=== PATIENT | female | born 1940 | race Caucasian/White ===

== ENCOUNTER 2021-10-03 01:22 | Outpatient (CLI) | payer MEDICARE, BC, SELFPAY | END 2021-10-03 01:23 | disposition home or self-care (01) | LOC: AMB 10-09 21:14 | PROVIDERS: Visit Provider Family Medicine | DX: R53.1 Weakness (principal) ==

== ENCOUNTER 2021-10-05 12:32 | Outpatient (CLI) | payer MEDICARE, BC, SELFPAY | END 2021-10-05 12:33 | disposition home or self-care (01) | LOC: AMB 10-10 12:04 | PROVIDERS: Visit Provider Family Medicine | DX: R53.1 Weakness (principal) ==

== ENCOUNTER 2021-12-07 14:20 | Outpatient (CLI) | payer MEDICARE, BC, SELFPAY | END 2021-12-07 14:21 | disposition home or self-care (01) | LOC: AMB 01-05 14:36 | PROVIDERS: Visit Provider Family Medicine | DX: R53.1 Weakness (principal) | CPT/HCPCS: A0998 ==

== ENCOUNTER 2021-12-20 13:45 | Outpatient (RCR) | payer MEDICARE, BC, SELFPAY | END 2022-02-23 17:16 | disposition home or self-care (01) | PROVIDERS: PCP Family Medicine; Visit Provider Family Medicine | DX: R26.9 Unspecified abnormalities of gait and mobility (principal); Z51.89 Encounter for other specified aftercare | CPT/HCPCS: 97110; 97140; 97162; 97530 ==

== ENCOUNTER 2022-06-28 18:04 | Outpatient (CLI) | payer MEDICARE, BC, SELFPAY | END 2022-06-28 18:05 | disposition home or self-care (01) | LOC: AMB 06-29 07:18 | PROVIDERS: Visit Provider Emergency Medicine Emergency Medical Services | DX: R53.1 Weakness (principal) | CPT/HCPCS: A0998 ==

== ENCOUNTER 2022-07-04 03:52 | Outpatient (CLI) | payer MEDICARE, BC, SELFPAY | END 2022-07-04 03:53 | disposition home or self-care (01) | LOC: AMB 07-08 09:23 | PROVIDERS: Visit Provider Family Medicine | DX: R53.1 Weakness (principal) | CPT/HCPCS: A0998 ==

== ENCOUNTER 2023-01-02 14:00 | Outpatient (RCR) | payer MEDICARE, BC, SELFPAY | END 2023-04-03 15:37 | disposition home or self-care (01) | PROVIDERS: Visit Provider Family Medicine | DX: R26.89 Other abnormalities of gait and mobility (principal); Z51.89 Encounter for other specified aftercare | CPT/HCPCS: 97110; 97162 ==

== ENCOUNTER 2023-05-23 11:29 | Outpatient (CLI) | payer MEDICARE, BC, SELFPAY | END 2023-05-23 11:30 | disposition home or self-care (01) | LOC: AMB 05-30 11:21 | PROVIDERS: Visit Provider Emergency Medicine | DX: R53.1 Weakness (principal) | CPT/HCPCS: A0998 ==

== ENCOUNTER 2023-05-31 01:11 | Outpatient (CLI) | payer MEDICARE, BC, SELFPAY | END 2023-05-31 01:12 | disposition home or self-care (01) | LOC: AMB 06-01 12:32 | PROVIDERS: Visit Provider Family Medicine | DX: S39.92XA Unspecified injury of lower back, initial encounter (principal); W19.XXXA Unspecified fall, initial encounter; Y92.003 Bedroom of unspecified non-institutional (private) residence as the place of occurrence of the external cause | CPT/HCPCS: A0425; A0427 ==

== ENCOUNTER 2023-05-31 01:44 | Observation (INO) | payer MEDICARE, BC, SELFPAY ==
[2023-05-31] VITALS (27 sets, daily range): BP systolic 133–167; BP diastolic 59–91; PULSE 64–84; RESP 16–20; TEMP 36.5–37.2; O2SAT 93–98; BMI 34.5; BMI 36.3
--- NOTE | 2023-05-31 01:56 | ED.FALL ---
HPI - Fall General Time Seen by Provider: 01:56 Date Seen: 05/31/23 Chief Complaint: Fall/Minor Trauma Stated Complaint: Fall Time Seen by Provider: 05/31/23 01:56 Source: patient, EMS and RN notes reviewed Mode of arrival: EMS Related Data Allergies Allergy/AdvReac Type Severity Reaction Status Date / Time No Known Drug Allergies Allergy Verified 05/31/23 01:46 Exam Const: Vital Signs, click to edit/add: Vital Signs - 24 hr 05/31/23 01:46 Temperature 98.9 F Pulse Rate [Pulse Oximeter] 80 Respiratory Rate 20 Blood Pressure [Ri t Upper Arm] 167/68 H Pulse Oximetry 98 Oxygen Delivery Me thod Room Air Course Vital Signs Vital signs: Initial Vital Signs Temperature 98.9 F 05/31/23 01:46 Temperature Source Temporal Artery Scan 05/31/23 01:46 Pulse Rate 80 05/31/23 01:46 Pulse Rhythm Regular 05/31/23 01:46 Pulse Strength 3+ Normal 05/31/23 01:46 Respiratory Rate 20 05/31/23 01:46 Blood Pressure 167/68 H 05/31/23 01:46 Blood Pressure Mean 101 05/31/23 01:46 Blood Pressure Position Supine 05/31/23 01:46 Pulse Oximetry 98 05/31/23 01:46 Oxygen Delivery Method Room Air 05/31/23 01:46 Vital Signs Temperature 98.9 F 05/31/23 01:46 Pulse Rate 80 05/31/23 01:46 Respiratory Rate 20 05/31/23 01:46 Blood Pressure 167/68 H 05/31/23 01:46 Pulse Oximetry 98 05/31/23 01:46 Oxygen Delivery Method Room Air 05/31/23 01:46 Temperature 98.9 F 05/31/23 01:46 Pulse Rate 80 05/31/23 01:46 Respiratory Rate 20 05/31/23 01:46 Blood Pressure 167/68 H 05/31/23 01:46 Pulse Oximetry 98 05/31/23 01:46 Oxygen Delivery Method Room Air 05/31/23 01:46 Discharge Plan Discharge Follow Up/Referrals: Provider,Not a Local [Primary Care Provider] -
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
--- NOTE | 2023-05-31 02:17 | XR_ITS ---
Patient: DALY CEBALLOS Facility:?[facility] Patient ID:?[id number] Site Patient ID:?[id number]. Site :?1940 Study:?XRay-Spine LUMBAR-05/31/2023 3:00:05 AM Ordering Physician:EVAN Final Report: Indication: Fall with low back pain Technique: Two views of the lumbar spine Comparison: None Findings/Impression: Mild leftward curvature and mild L4-5 anterolisthesis along with moderate to severe spondylosis appearing greatest at L5-S1. No acute radiographic abnormality appreciated. Dictated by Trell Pappas MD @ 05/31/2023 3:34:46 AM Signed by:?Trell Pappas MD @05/31/2023 3:34:46 AM (Electronic Signature)
--- NOTE | 2023-05-31 02:17 | XR_ITS ---
Patient: DALY CEBALLOS Facility:?[facility] Patient ID:?[id number] Site Patient ID:?[id number]. Site :?1940 Study:?XRay-Chest 1 VIEW-05/31/2023 3:03:44 AM Ordering Physician:EAVN Final Report: Indication: Fall Technique: Single view of the chest Comparison: None Findings/Impression: No acute cardiopulmonary process detected. Dictated by Trell Pappas MD @ 05/31/2023 3:39:12 AM Signed by:?Trell Pappas MD @05/31/2023 3:39:12 AM (Electronic Signature)
--- NOTE | 2023-05-31 02:17 | XR_ITS ---
Patient: DALY CEBALLOS Facility:?[facility] Patient ID:?[id number] Site Patient ID:?[id number]. Site :?1940 Study:?XRay-Pelvis -05/31/2023 3:01:02 AM Ordering Physician:EVAN Final Report: Indication: Fall with low back pain Technique: Single view of the pelvis Comparison: CT abdomen pelvis dated 09/03/2020 Findings/Impression: Irregular contour along the left femur appears to be chronic correlating with prior CT. Allowing for single frontal only pelvic views and overlying bowel gas, no acute radiographic abnormality is appreciated. Dictated by Trell Pappas MD @ 05/31/2023 3:36:04 AM Signed by:?Trell Pappas MD @05/31/2023 3:36:04 AM (Electronic Signature)
--- NOTE | 2023-05-31 02:17 | XR_ITS ---
Patient: DALY CEBALLOS Facility:?[facility] Patient ID:[id number] Site Patient ID:?[id number]. Site :?1940 Study:?XRay-Chest 1 VIEW-05/31/2023 3:03:44 AM Ordering Physician:EVAN Final Report: Indication: Fall Technique: Single view of the chest Comparison: None Findings/Impression: No acute cardiopulmonary process detected. Dictated by Trell Pappas MD @ 05/31/2023 3:39:12 AM Signed by:?Trell Pappas MD @05/31/2023 3:39:12 AM (Electronic Signature)
[2023-05-31 02:30] LABS: Lactate* 1.4 mmol/L (0.5-1.9)
[2023-05-31 02:33] LABS: Basophils Absolute Auto 0.02 K/uL (0.00-0.30); Basophils Percent Auto 0.3 % (0.0-3.0); Hematocrit 43.2 % (33.0-51.0); Hemoglobin* 14.4 gm/dL (12.0-16.0); Immature Granulocytes Abs Auto 0.02 K/uL (0.00-0.30); Immature Granulocytes Pct Auto 0.3 %; Mean Corpuscular HGB Conc 33 gm/dL (32-36); Mean Corpuscular Hemoglobin 32 pg (26-34); Mean Corpuscular Volume 95 fL (80-100); Neutrophils Percent Auto 85.4 % (42.0-72.0); Platelet Count* 197 K/uL (140-440); Red Blood Count 4.55 m/uL (4.00-5.20); White Blood Count* 7.04 K/uL (4.50-11.00)
[2023-05-31 02:34] LABS: Slide Review Reflex No
[2023-05-31] MEDS: 0.9 % SODIUM CHLORIDE 1000 ml 1,000 ML IV (03:00)
[2023-05-31 03:29] LABS: Albumin* 4.2 g/dL (3.3-5.0); Chloride* 104 mmol/L (96-114); Potassium* 3.9 mmol/L (3.6-5.1); Sodium* 137 mmol/L (135-149)
[2023-05-31 03:31] LABS: Creatinine* 0.5 mg/dL (0.5-1.5); Est. Creatinine Clearance* 35.88; Estimated Glomerular Filt Rate 94 ml/min
[2023-05-31 03:32] LABS: Alanine Aminotransferase* 19 U/L (4-35); Alkaline Phosphatase* 100 U/L (40-150); Anion Gap 6 mEq/L (7-15); Aspartate Amino Transferase* 25 U/L (12-35); Blood Urea Nitrogen* 16 mg/dL (7-30); Calcium* 10.6 mg/dL (8.4-10.6); Carbon Dioxide* 27 mmol/L (20-32); Creatine Kinase* 200 U/L (41-117); Glucose* 126 mg/dL (60-115); Lipase* 25 U/L (23-300); Total Protein* 7.4 g/dL (6.0-8.3)
[2023-05-31 03:35] LABS: C Reactive Protein* 2.9 mg/dL (0.5-1.0)
[2023-05-31 03:52] LABS: PCR FLU A Negative PCR FLU A (Negative); PCR FLU B Negative PCR FLU B (Negative); PCR RSV Negative PCR RSV (Negative); SARS PCR* Negative SARS-CoV-2 (Negative)
--- NOTE | 2023-05-31 04:05 | CT_ITS ---
Patient: DALY CEBALLOS Facility:?[facility] Patient ID:?[id number] Site Patient ID:?[id number]. Site :?1940 Study:?CT-Head W/O-05/31/2023 4:36:13 AM Ordering Physician:EVAN Final Report: INDICATION: ALTERED MENTAL STATUS TECHNIQUE: Head CT without contrast. COMPARISON: CT head September 04, 2020. FINDINGS: CSF spaces: Mild global parenchymal volume loss. Brain parenchyma and extra-axial spaces: There are mild nonspecific low attenuation white matter changes consistent with chronic microvascular disease. No sign of mass effect, hemorrhage, or midline shift. Skull base and calvarium: The visualized paranasal sinuses and mastoid air cells demonstrate no acute or significant findings. The visualized orbits are grossly unremarkable. No skull fractures. IMPRESSION: No evidence of acute intracranial abnormality on this unenhanced CT. Mild global parenchymal volume loss and chronic microvascular ischemic changes. Please note that all CT scans at this facility use dose modulation, iterative reconstruction, and/or weight-based dosing when appropriate to reduce radiation dose to as low as reasonably achievable. Dictated by Javier Rosenthal MD @ 05/31/2023 4:48:54 AM Signed by:?Javier Rosenthal MD @05/31/2023 4:48:54 AM (Electronic Signature)
--- NOTE | 2023-05-31 04:06 | CT_ITS ---
Patient: DALY CEBALLOS Facility:?[facility] Patient ID:?[id number] Site Patient ID:?[id number] Site :?1940 Study:?CT-Spine C SPINE-05/31/2023 4:34:53 AM Ordering Physician:EVAN Final Report: INDICATION: Fall, dementia TECHNIQUE: CT cervical spine without contrast. COMPARISON: None. FINDINGS: Vertebrae: Alignment is normal. Generalized osteopenia. There are no fractures or suspicious bony lesions. Discs and facet joints: There are mild-moderate diffuse degenerative changes in the disc spaces and facet joints. Extraspinal findings: Paraspinous soft tissues are unremarkable. IMPRESSION: 1. No sign of acute cervical spine fracture. 2. Multilevel degenerative spondylosis. Please note that all CT scans at this facility use dose modulation, iterative reconstruction, and/or weight-based dosing when appropriate to reduce radiation dose to as low as reasonably achievable. Dictated by Javier Rosenthal MD @ 05/31/2023 4:45:09 AM Signed by:?Javier Rosenthal MD @05/31/2023 4:45:09 AM (Electronic Signature)
[2023-05-31 04:08] LABS: Appearance Urine Cloudy (Clear); Bilirubin Urine Negative (Negative); Blood Urine Trace-intact (Negative); Color Urine Yellow (Yellow); Glucose Urine Negative (Negative); Ketones Urine 2+ (Negative); Leukocyte Esterase Urine Trace (Negative); Nitrite Urine Negative (Negative); Protein Urine Negative (Negative); Urobilinogen Urine 0.2 (0.2-1.0)
[2023-05-31 04:16] LABS: RBC Urine 0-2 (0-2)
[2023-05-31 04:17] LABS: Amorphous Sediment Urine Moderate; Bacteria Urine Moderate; Mucus Urine Moderate; Squamous Epithelial Cell Urine Few (None-Few)
--- NOTE | 2023-05-31 07:13 | W.PM.THH&P_ITS ---
Telehealth- H&P: HPI History of Present Illness Date Seen: 05/31/23 Chief complaint: Fall Narrative: Danita Wallace is seen as an Interactive Telehealth visit. Danita Wallace is a 83 year old female who is brought into the emergency room via ambulance after being found down on the floor. Danita does have a significant past medical history of dementia and currently is only able to provide limited information with her known dementia. It sounds like Samira may have notified EMS via some type of alert system such as life alert that she was found down. She normally has a routine caregiver Radha from [employer], who seems to see her almost on a daily basis. It sounds like Radha is currently on vacation or is taking a leave of absence and was not able to see Danita yesterday. Samira states that she slipped out of bed and was on the floor and unable to get up. It is somewhat unclear how EMS was notified, but nevertheless they did arrive at Danita's house and Danita was found on the floor. She was brought into the emergency room where she was noted to be quite confused, but this does sound to be her baseline status. A full workup was done including a CT scan of the head, neck and also a chest x-ray, lumbar spine x-ray and pelvis x-ray. Fortunately, these were all found to be fairly unremarkable with no sign of acute injury or trauma. The only complaint that Danita has is some back pain which sounds to be quite chronic as she states that she started having back pain after what sounds to be a lithotripsy procedure quite sometime ago. With her inability to care for herself at home alone, she is currently being admitted to the medical service for ongoing evaluation and treatment. Again, Danita otherwise denies any other acute complaints or problems or any other injuries. Review of Systems Status of ROS: Reports: 10 or more systems reviewed and unremarkable except as noted in History and below, unobtainable due to medical condition and unobtainable due to mental status [facility] Social History Smoking Status: Never smoker Do you use any of these nicotine containing products: None How often do you have a drink containing alcohol: never AUDIT-C Alcohol total score: 0 Non-prescribed substance use: denies use Meds Home Medications and Allergies Home Medications Medication Instructions Recorded Confirmed Type acetaminophen 325 mg tablet 650 mg PO Q4H PRN 05/31/23 05/31/23 History cholecalciferol (vitamin D3) 125 125 mcg PO DAILY 05/31/23 05/31/23 History mcg (5,000 unit) tablet (Vitamin D3) citalopram 10 mg tablet 10 mg PO DAILY 05/31/23 05/31/23 History cyanocobalamin (vitamin B-12) 1,000 mcg PO DAILY 05/31/23 05/31/23 History 1,000 mcg tablet donepezil 10 mg tablet 10 mg PO HS 05/31/23 05/31/23 History Allergies Allergy/AdvReac Type Severity Reaction Status Date / Time No Known Drug Allergies Allergy Verified 05/31/23 01:46 Exam Narrative Exam Narrative: GENERAL: vital signs reviewed, well developed and nourished, in no distress HEENT: pupils are equal round and reactive to light, extraocular movements are grossly within normal limits and oral mucosa is moist. NECK: Supple without lymphadenopathy or thyromegaly according to nursing staff examination observation HEART: Regular rate and rhythm without any rubs or gallops. A 1/6 systolic ejection murmur is heard over the aortic area. LUNGS: Clear to auscultation bilaterally with good air movement throughout ABDOMEN: Observation from nurse assisted exam, abdomen appears soft, nontender, and nondistended with Positive bowel sounds noted. EXTREMITIES: Strength and sensation is observed to have some decreased strength, but symmetric throughout. +1 pitting edema is noted in her lower extremities. SKIN: Observed warm and dry with color normal NEURO: Alert, awake and answers all questions to the best of her knowledge. She does know that she is in the hospital but does not know the year and does guess at the month. Other than the dementia type memory problems, no other focal neurodeficit is noted. PSYCH: Affect does show some handset possible depression and she did have some slight discussion about some desire for end-of-life due to loneliness, but she did not seem to have any plan or acute suicidal ideation. Const Vital Signs, click to edit/add: Vital Signs - 24 hr 05/31/23 01:46 05/31/23 03:01 05/31/23 03:02 Temperature 98.9 F Pulse Rate 81 78 Pulse Rate [Pulse Oximeter] 80 Pulse Rate [Right Pulse Oximeter] Respiratory Rate 20 Blood Pressure 151/72 H Blood Pressure [Left Arm] Blood Pressure [Right Upper Arm] 167/68 H Pulse Oximetry 98 97 95 Oxygen Delivery Method Room Air 05/31/23 03:15 05/31/23 03:17 05/31/23 03:18 Temperature Pulse Rate 79 79 78 Pulse Rate [Pulse Oximeter] Pulse Rate [Right Pulse Oximeter] Respiratory Rate Blood Pressure 149/66 H Blood Pressure [Left Arm] Blood Pressure [Right Upper Arm] Pulse Oximetry 94 95 93 Oxygen Delivery Method 05/31/23 03:30 05/31/23 03:32 05/31/23 03:45 Temperature Pulse Rate 78 79 84 Pulse Rate [Pulse Oximeter] Pulse Rate [Right Pulse Oximeter] Respiratory Rate Blood Pressure 135/91 H Blood Pressure [Left Arm] Blood Pressure [Right Upper Arm] Pulse Oximetry 94 94 97 Oxygen Delivery Method 05/31/23 03:47 05/31/23 04:00 05/31/23 04:02 Temperature Pulse Rate 83 76 80 Pulse Rate [Pulse Oximeter] Pulse Rate [Right Pulse Oximeter] Respiratory Rate Blood Pressure 149/69 H 150/63 H Blood Pressure [Left Arm] Blood Pressure [Right Upper Arm] Pulse Oximetry 96 97 97 Oxygen Delivery Method 05/31/23 04:15 05/31/23 04:17 05/31/23 04:30 Temperature Pulse Rate 78 79 Pulse Rate [Pulse Oximeter] Pulse Rate [Right Pulse Oximeter] Respiratory Rate Blood Pressure 135/59 L Blood Pressure [Left Arm] Blood Pressure [Right Upper Arm] Pulse Oximetry 97 95 Oxygen Delivery Method 05/31/23 04:31 05/31/23 04:45 05/31/23 04:47 Temperature Pulse Rate 79 78 78 Pulse Rate [Pulse Oximeter] Pulse Rate [Right Pulse Oximeter] Respiratory Rate Blood Pressure 143/67 H 138/67 Blood Pressure [Left Arm] Blood Pressure [Right Upper Arm] Pulse Oximetry 96 94 94 Oxygen Delivery Method 05/31/23 05:00 05/31/23 05:02 05/31/23 06:10 Temperature 98.1 F Pulse Rate 79 81 Pulse Rate [Pulse Oximeter] Pulse Rate [Right Pulse Oximeter] 74 Respiratory Rate 16 Blood Pressure 140/63 H Blood Pressure [Left Arm] 140/61 H Blood Pressure [Right Upper Arm] Pulse Oximetry 93 97 97 Oxygen Delivery Method Room Air 05/31/23 06:10 Temperature Pulse Rate Pulse Rate [Pulse Oximeter] Pulse Rate [Right Pulse Oximeter] Respiratory Rate 16 Blood Pressure Blood Pressure [Left Arm] Blood Pressure [Right Upper Arm] Pulse Oximetry 97 Oxygen Delivery Method Room Air Documenting provider has reviewed patient's vital signs: yes Hospitalist - H&P: Result Labs Labs: Short CBC 05/31/23 Range/Units 02:25 WBC 7.04 (4.50-11.00) K/uL Hgb 14.4 (12.0-16.0) gm/dL Hct 43.2 (33.0-51.0) % Plt Count 197 (140-440) K/uL BMP 05/31/23 02:25 Sodium 137 Potassium 3.9 Chloride 104 Carbon Dioxide 27 BUN 16 Creatinine 0.5 Glucose 126 H Calcium 10.6 Cardiac Enzymes 05/31/23 Range/Units 02:25 Total Creatine Kinase 200 H (41-117) U/L Liver Function 05/31/23 Range/Units 02:25 Total Bilirubin 1.0 (0.1-1.5) mg/dL AST 25 (12-35) U/L ALT 19 (4-35) U/L Alkaline Phosphatase 100 (40-150) U/L Albumin 4.2 (3.3-5.0) g/dL Urine 05/31/23 Range/Units 03:55 Urine Color Yellow (Yellow) Urine Appearance Cloudy A (Clear) Urine pH 7.0 (5.0-8.5) Ur Specific [place] 1.020 (1.000-1.030) Urine Protein Negative (Negative) Urine Glucose (UA) Negative (Negative) ECG Attestation: I personally reviewed and interpreted this ECG as follows: Interpretation: No QTc prolongation is noted Imaging CT scan - head: Radiologist's impression: Preliminary report from the emergency room is no sign of acute intracranial bleed and CT scan of the neck shows no sign of acute cervical fracture Assessment and Plan Assessment and plan (1) Fall: Status: Acute (2) Physical deconditioning: Status: Acute (3) Dementia: Status: Acute Plan Assessment: 1. Fall with generalized weakness and physical deconditioning 2. Dementia/vulnerable adult 3. Inability to do ADLs due to #1 and #2 above 4. Chronic low back pain 5. Depression symptoms Plan: At this time Danita has been admitted to the medical service. It does appear that she has been functioning at home alone with the help of a caregiver, but does seem to be at high risk of falls and vulnerable adult status when the caregiver is not present. At this time I will ask for physical therapy and Occ upational Therapy to evaluate Danita for her ability to function independently. I will also assess social service for evaluation for possible need for higher level of care such as assisted living or possibly even penitentiary facility. I do believe that the emergency room provider did talk to Danita's daughter and did confirm that she has been having worsening dementia. Also confirmed was her CODE STATUS of DNI/DNR. At this time, will continue to observe for any findings of injury with her falls and will also evaluate whether she would be safe to be discharged back home to independent living status. I will reinstitute her home medications and will follow-up with repeat laboratory investigation including a repeat CPK as well as a TSH. I have discussed this plan with Danita and she is agreeable to proceed. Will continue to follow from medical standpoint. Telehealth: Statement Statement Telehealth Visit: Today's History and Physical is provided via interactive telehealth by Oh Delaney MD.? Patient is located at [facility].? Provider is located at [facility].? Nursing staff assisted with the patient's exam. The visit being done today meets criteria for a telehealth visit and the patient or patient?s parent/guardian is aware the visit is a telehealth visit. Camera Start Time: 06:38 Camera End Time: 06:58
--- NOTE | 2023-05-31 07:17 | PC.NURSE ---
Patient admitted to unit at 0605 with fall and weakness. Pain to low back reported, declined any pain management options at this time. Lung sounds clear, diminished bilaterally. Bowel sounds active 4 quadrants. +1 BLE edema from mid calf to ankle, pedal pulse present with moderate weakness. Denies any shortness of breath or chest pain.
[2023-05-31] MEDS: ACETAMINOPHEN 325 MG TABLET PO ×2 (08:23→21:00)
[2023-05-31] MEDS: CITALOPRAM HYDROBROMIDE 20 MG TABLET 10 MG PO (08:24)
[2023-05-31] MEDS: SODIUM CHLORIDE 0.9 % (FLUSH) 10 ML SYRINGE 5 ML IVF ×2 (08:26→21:01)
--- NOTE | 2023-05-31 14:34 | PC.NURSE ---
End of shift [id number]: Pt is alert to self and place, intermittently oriented to time & situation. Pt has been afebrile and VSS this shift. She is Ax1 with 2ww and gait belt with staff keeping hands on gait belt d/t abrupt landings into chair or bed. PIV in right FA inserted today, SL and C/D/I. Pt continues to c/o chronic low back pain, PRN Tylenol given x1 dose @ 0825. Pt is continent of B&B, had a moderate BM this afternoon. Caregiver, Radha, here this afternoon visiting with patient. SW met with pt & caregiver to discuss SNF discharge options & sounds like someone from [facility] will be coming this afternoon to assess patient. ?
--- NOTE | 2023-05-31 15:58 | PM.IMPN1 ---
Progress Note: A&P Assessment and plan (1) Fall: Status: Acute (2) Physical deconditioning: Status: Acute (3) Dementia: Status: Acute Plan 1. Reviewed impression with patient 2. Continue with patient assessment including physical and occupational therapy 3. When list support from public health social worker to help us with discharge disposition planning 4. Unsafe to send patient home in her current condition without a safe discharge plan Time Spent With Patient Total time spent: 30 minutes Subjective Date Seen: 05/31/23 Interval history: History of present illness: 83 year old female who is brought into the emergency room via ambulance after being found down on the floor. Danita does have a significant past medical history of dementia and currently is only able to provide limited information with her known dementia. It sounds like Samira may have notified EMS via some type of alert system such as life alert that she was found down. She normally has a routine caregiver Radha from [employer], who seems to see her almost on a daily basis. It sounds like Radha is currently on vacation or is taking a leave of absence and was not able to see Danita yesterday. Samira states that she slipped out of bed and was on the floor and unable to get up. It is somewhat unclear how EMS was notified, but nevertheless they did arrive at Danita's house and Danita was found on the floor. She was brought into the emergency room where she was noted to be quite confused, but this does sound to be her baseline status. A full workup was done including a CT scan of the head, neck and also a chest x-ray, lumbar spine x-ray and pelvis x-ray. Fortunately, these were all found to be fairly unremarkable with no sign of acute injury or trauma. The only complaint that Danita has is some back pain which sounds to be quite chronic as she states that she started having back pain after what sounds to be a lithotripsy procedure quite sometime ago. With her inability to care for herself at home alone, she is currently being admitted to the medical service for ongoing evaluation and treatment. Again, Danita otherwise denies any other acute complaints or problems or any other injuries. Patient not able to recall a lot about how she ended up here in the hospital. She thought she might have called EMS to help her get up but somehow ended up in the hospital. Acknowledges that her caregiver has not been in her home as she ordinarily is roughly 4 hours a day because of a leave of absence which she had notified the patient of. She indicates she is otherwise feeling well at this time. Exam Narrative: Exam Narrative: I examine her in her hospital room. When I 1st try to assess her earlier in the morning she is sound asleep and does not arouse to my calling her name or touching her hand or listening to her heart or lungs. Later she arouses and is able to pivot transfer with assist to recliner chair at her bedside. Appears comfortable in no acute distress. Alert, oriented to self, not necessarily oriented to place, time, situation. Reviewed records from 2020 when patient had a [place] score of 16. Lungs are clear to auscultation. Heart tones with regular rhythm. Abdomen with active bowel sounds, soft, nontender. No focal neurologic deficits. Follows simple 1 step commands. Able to read her menu and decide on 1 food choice for her breakfast. With prompting she is able to select other food choices as well. Const: Vital Signs, click to edit/add: Vital Signs - 24 hr 05/31/23 01:46 05/31/23 03:01 05/31/23 03:02 Temperature 98.9 F Pulse Rate 81 78 Pulse Rate [Pulse Oximeter] 80 Pulse Rate [Right Pulse Oximeter] Respiratory Rate 20 Blood Pressure 151/72 H Blood Pressure [Le ft Arm] Blood Pressure [Ri ght Upper Arm] 167/68 H Pulse Oximetry 98 97 95 Oxygen Delivery [facility] Room Air 05/31/23 03:15 05/31/23 03:17 05/31/23 03:18 Temperature Pulse Rate 79 79 78 Pulse Rate [Pulse Oximeter] Pulse Rate [Right Pulse Oximeter] Respiratory Rate Blood Pressure 149/66 H Blood Pressure [Le ft Arm] Blood Pressure [Ri ght Upper Arm] Pulse Oximetry 94 95 93 [facility] 05/[facility]/23 03:30 05/31/23 03:32 05/31/23 03:45 Temperature Pulse Rate 78 79 84 Pulse Rate [Pulse Oximeter] Pulse Rate [Right Pulse Oximeter] Respiratory Rate Blood Pressure 135/91 H Blood Pressure [Le ft Arm] Blood Pressure [Ri ght Upper Arm] Pulse Oximetry 94 94 97 [facility] 05/31/23 03:47 05/31/23 04:00 05/31/23 04:02 Temperature Pulse Rate 83 76 80 Pulse Rate [Pulse Oximeter] Pulse Rate [Right Pulse Oximeter] Respiratory Rate Blood Pressure 149/69 H 150/63 H Blood Pressure [Le ft Arm] Blood Pressure [Ri ght Upper Arm] Pulse Oximetry 96 97 97 Oxygen Delivery Me thod 05/31/23 04:15 05/31/23 04:17 05/31/23 04:30 Temperature Pulse Rate 78 79 Pulse Rate [Pulse Oximeter] Pulse Rate [Right Pulse Oximeter] Respiratory Rate Blood Pressure 135/59 L Blood Pressure [Le ft Arm] Blood Pressure [Ri ght Upper Arm] Pulse Oximetry 97 95 Oxygen Delivery Me thod 05/31/23 04:31 05/31/23 04:45 05/31/23 04:47 Temperature Pulse Rate 79 78 78 Pulse Rate [Pulse Oximeter] Pulse Rate [Right Pulse Oximeter] Respiratory Rate Blood Pressure 143/67 H 138/67 Blood Pressure [Le ft Arm] Blood Pressure [Ri ght Upper Arm] Pulse Oximetry 96 94 94 [facility] 05/31/23 05:00 05/31/23 05:02 05/31/23 06:10 Temperature 98.1 F Pulse Rate 79 81 Pulse Rate [Pulse Oximeter] Pulse Rate [Right Pulse Oximeter] 74 Respiratory Rate 16 Blood Pressure 140/63 H Blood Pressure [Le ft Arm] 140/61 H Blood Pressure [Ri ght Upper Arm] Pulse Oximetry 93 97 97 [facility] 05/31/23 06:10 05/31/23 07:00 05/31/23 08:00 Temperature 98.9 F Pulse Rate Pulse Rate [Pulse Oximeter] Pulse Rate [Right Pulse Oximeter] 75 75 Respiratory Rate 16 16 16 Blood Pressure Blood Pressure [Le ft Arm] 142/61 H Blood Pressure [Ri ght Upper Arm] Pulse Oximetry 97 93 [facility] Room Air 05/31/23 11:00 Temperature 98.4 F Pulse Rate Pulse Rate [Pulse Oximeter] Pulse Rate [Right Pulse Oximeter] 70 Respiratory Rate 16 Blood Pressure Blood Pressure [Le ft Arm] 138/64 Blood Pressure [Ri ght Upper Arm] Pulse Oximetry 97 [facility] Labs Labs: Laboratory Results - last 24 hr 05/31/23 05/31/23 05/31/23 02:17 02:25 03:01 WBC 7.04 RBC 4.55 Hgb 14.4 Hct 43.2 MCV 95 MCH 32 MCHC 33 RDW Coeff of [place] 13.0 Plt Count 197 Neut % (Auto) 85.4 H Lymph % (Auto) 8.0 L [place] % (Auto) 6.0 Eos % (Auto) 0.0 Baso % (Auto) 0.3 Neut # (Auto) 6.00 Lymph # (Auto) 0.60 L [place] # (Auto) 0.40 Eos # (Auto) 0.00 Baso # (Auto) 0.02 Abs Immat Gran (auto) 0.02 Imm/Tot Granulo (auto) 0.3 Sodium 137 Potassium 3.9 Chloride 104 Carbon Dioxide 27 Anion Gap 6 L BUN 16 Creatinine 0.5 Estimated Creat Clear 35.88 Estimated GFR 94 Glucose 126 H Lactate 1.4 Calcium 10.6 Total Bilirubin 1.0 AST 25 ALT 19 Alkaline Phosphatase 100 Total Creatine Kinase 200 H C-Reactive Protein 2.9 H Total Protein 7.4 Albumin 4.2 Lipase 25 Urine Color Urine Appearance Urine pH Ur Specific [place] Urine Protein Urine Glucose (UA) Urine Ketones Urine Blood Urine Nitrite Urine Bilirubin Urine Urobilinogen Ur Leukocyte Esterase Urine RBC Urine WBC Ur Squamous Epith Cells Amorphous Sediment Urine Bacteria Urine Mucus SARS-CoV-2 (PCR) Negative SARS-CoV-2 Influenza Type A (PCR) Negative PCR FLU A Influenza Type B (PCR) Negative PCR FLU B RSV (PCR) Negative PCR RSV POC Troponin I 0.00 L 05/31/23 03:55 WBC RBC Hgb Hct MCV MCH MCHC RDW Coeff of Nicholas Plt Count Neut % (Auto) Lymph % (Auto) [place] % (Auto) Eos % (Auto) Baso % (Auto) Neut # (Auto) Lymph # (Auto) [place] # (Auto) Eos # (Auto) Baso # (Auto) Abs Immat Gran (auto) Imm/Tot Granulo (auto) Sodium Potassium Chloride Carbon Dioxide Anion Gap BUN Creatinine Estimated Creat Clear Estimated GFR Glucose Lactate Calcium Total Bilirubin AST ALT Alkaline Phosphatase Total Creatine Kinase C-Reactive Protein Total Protein Albumin Lipase Urine Color Yellow Urine Appearance Cloudy A Urine pH 7.0 Ur Specific [place] 1.020 Urine Protein Negative Urine Glucose (UA) Negative Urine Ketones 2+ A Urine Blood Trace-intact A Urine Nitrite Negative Urine Bilirubin Negative Urine Urobilinogen 0.2 Ur Leukocyte Esterase Trace A Urine RBC 0-2 Urine WBC 2-5 Ur Squamous Epith Cells Few Amorphous Sediment Moderate A Urine Bacteria Moderate A Urine Mucus Moderate A SARS-CoV-2 (PCR) Influenza Type A (PCR) Influenza Type B (PCR) RSV (PCR) POC Troponin I
--- NOTE | 2023-05-31 16:21 | PC.SOCIAL ---
Discharge planning: Spoke with dtr Katia, who shared that she had been trying to get pt to consider moving into an assisted living facility and agrees that she needs 24/7 care, which she does not currently have in her home. Pt has a hired attendant who provides a lot fo assistance but not 24/7 care. Discussed options with dtr including hiring 24/7 care at home or moving to assisted living, or going for short term stay at the [facility]. Dtr requested forensic social worker look into [facility] and the [facility]. Called [facility] ans spoke with CANDIE Chavarria, who stated they may have an open apartment next week and requested information be sent for evaluation for admit in the future. Called Lena at [facility] and sent information for evaluation for admit. Received call back from Lena that she can come and evaluate pt at the hospital today. Called Dtr who is aware and pleased with this plan. Met with pt who states she would rather go home but is agreeable to a short term stay at [facility] assisted living at discharge. Lena from [facility] came to evaluate pt and has accepted pt for admit to [facility] for 06/01/23 with a van pickling tank operator at 11:00am. sand worker to follow up as needed.
[2023-05-31] MEDS: ENOXAPARIN 30 MG/0.3ML INJ SUBCUT (18:56)
[2023-05-31] MEDS: DONEPEZIL 10 MG TABLET PO (21:00)
--- NOTE | 2023-06-01 00:31 | PC.NURSE ---
Shift unremarkable. VS WNL and LS COA. Moderate chronic low back pain, Tylenol given PRN at HS. Chatting in her chair with family member. Pleasant and cooperative. Continent and mostly using call light appropriately. x2 attempts to self transfer but easily redirected by staff.
[2023-06-01 03:00] VITALS: BP 141/65; PULSE 71; RESP 16; TEMP 36.6; O2SAT 93
--- NOTE | 2023-06-01 05:37 | PC.NURSE ---
Patient pleasant, alert and cooperative. Confused at times. Ambulates with walker, gait belt and stand by assist. Denied pain. ?
[2023-06-01 06:37] LABS: Basophils Percent Auto 0.7 % (0.0-3.0); Hematocrit 40.2 % (33.0-51.0); Hemoglobin* 13.2 gm/dL (12.0-16.0); Immature Granulocytes Pct Auto 0.2 %; Lymphocytes Percent Auto 47.3 % (20-44); Mean Corpuscular HGB Conc 33 gm/dL (32-36); Mean Corpuscular Hemoglobin 31 pg (26-34); Mean Corpuscular Volume 96 fL (80-100); Monocytes Percent Auto 13.4 % (0.0-11.0); Neutrophils Percent Auto 36.4 % (42.0-72.0); RDW Coefficient of Variation % 13.1 % (11.5-15.5); Red Blood Count 4.21 m/uL (4.00-5.20); White Blood Count* 4.48 K/uL (4.50-11.00)
[2023-06-01 06:48] LABS: Chloride* 109 mmol/L (96-114); Potassium* 3.6 mmol/L (3.6-5.1); Sodium* 138 mmol/L (135-149)
[2023-06-01 06:51] LABS: Anion Gap 3 mEq/L (7-15); Blood Urea Nitrogen* 15 mg/dL (7-30); Carbon Dioxide* 26 mmol/L (20-32); Creatine Kinase* 206 U/L (41-117); Creatinine* 0.4 mg/dL (0.5-1.5); Est. Creatinine Clearance* 35.88; Estimated Glomerular Filt Rate 99 ml/min; Glucose* 97 mg/dL (60-115)
[2023-06-01 07:35] VITALS: BP 132/61; PULSE 65; RESP 16; TEMP 36.5; O2SAT 96
[2023-06-01 07:36] LABS: Platelet Count* 165 K/uL (140-440); Slide Review Reflex No
[2023-06-01] MEDS: CITALOPRAM HYDROBROMIDE 20 MG TABLET 10 MG PO (08:34)
[2023-06-01] MEDS: SODIUM CHLORIDE 0.9 % (FLUSH) 10 ML SYRINGE 5 ML IVF (08:35)
--- NOTE | 2023-06-01 09:42 | PC.SOCIAL ---
Discharge plan: Pt has been accepted for admit to the Enhanced Assisted Living short term unit at the [facility] for admission today. Facility will send their van for pickling machine operator at 11:00. Called DtrKatia, who is aware and agrees with this plan. Katia is aware of how to contact this social problems specialist if she has any additional questions.
--- NOTE | 2023-06-02 14:55 | P.DS_ITS ---
DS: Providers Provider Date Seen: 06/02/23 Date of admission: 05/31/23 06:00 Primary care physician: Not a Local Provider Admitting Clinician: Vivi Gupta MD Consults: 05/31/23 07:06 Consult to Physical Therapy [CONS] Routine Comment: Reason(s) for PT Consult:: Evaluate and Treat Any Restrictions?:: No Restrictions Consult to Subwarehouse Supervisor [CONS] Routine Comment: Reason for Consult:: Discharge Planning Needs 05/31/23 07:09 Consult to Occupational Therapy [CONS] Routine Comment: Reason(s) for OT Consult:: Evaluate and Treat Any Restrictions?:: No Restrictions Attending Physician on discharge: Evelio Chun MD Date of Discharge: 06/01/23 DS: Diagnosis Discharge Diagnosis (1) Fall: Status: Acute (2) Age-related physical debility: Status: Acute (3) Physical deconditioning: Status: Acute (4) Dementia: Status: Acute (5) Low back pain: Status: Acute DS: Summary Hospital Course Hospital Course: History of present illness: 83 year old female who is brought into the emergency room via ambulance after being found down on the floor. Danita does have a significant past medical history of dementia and currently is only able to provide limited information with her known dementia. It sounds like Samira may have notified EMS via some type of alert system such as life alert that she was found down. She normally has a routine caregiver Radha from [employer], who seems to see her almost on a daily basis. It sounds like Radha is currently on vacation or is taking a leave of absence and was not able to see Danita yesterday. Samira states that she slipped out of bed and was on the floor and unable to get up. It is somewhat unclear how EMS was notified, but nevertheless they did arrive at Danita's house and Danita was found on the floor. She was brought into the emergency room where she was noted to be quite confused, but this does sound to be her baseline status. A full workup was done including a CT scan of the head, neck and also a chest x-ray, lumbar spine x-ray and pelvis x-ray. Fortunately, these were all found to be fairly unremarkable with no sign of acute injury or trauma. The only complaint that Danita has is some back pain which sounds to be quite chronic as she states that she started having back pain after what sounds to be a lithotripsy procedure quite sometime ago. With her inability to care for herself at home alone, she is currently being admitted to the medical service for ongoing evaluation and treatment. Again, Danita otherwise denies any other acute complaints or problems or any other injuries. Patient not able to recall a lot about how she ended up here in the hospital. She thought she might have called EMS to help her get up but somehow ended up in the hospital. Acknowledges that her caregiver has not been in her home as she ordinarily is roughly 4 hours a day because of a leave of absence which she had notified the patient of. She indicates she is otherwise feeling well at this time. Patient essentially admitted because of unsafe living setting without support from her caregiver who is out of town. Discharge to [facility] enhance living until such time as his team safe for her to return home with appropriate support in the home once again. Time Spent with Patient Time attestation: Total time spent providing and/or coordinating discharge services: Exam Narrative: Exam Narrative: I examine her in her hospital room. When I 1st try to assess her earlier in the morning she is sound asleep and does not arouse to my calling her name or touching her hand or listening to her heart or lungs. Later she arouses and is able to pivot transfer with assist to recliner chair at her bedside. Appears comfortable in no acute distress. Alert, oriented to self, not necessarily oriented to place, time, situation. Reviewed records from 2020 when patient had a [place] score of 16. Lungs are clear to auscultation. Heart tones with regular rhythm. Abdomen with active bowel sounds, soft, nontender. No focal neurologic deficits. Follows simple 1 step commands. Able to read her menu and decide on 1 food choice for her breakfast. With prompting she is able to select other food choices as well. Const: Documenting provider has reviewed patient's vital signs: yes DS: Data Imaging Chest x-ray: Attestation: I have reviewed the pertinent imaging results. Radiologist's impression: No acute abnormalities. Lumbar spine x-ray: Attestation: I have reviewed the pertinent imaging results. Radiologist's impression: Findings/Impression: Mild leftward curvature and mild L4-5 anterolisthesis along with moderate to severe spondylosis appearing greatest at L5-S1. No acute radiographic abnormality appreciated. Pelvic x-ray: Attestation: I have reviewed the pertinent imaging results. Radiologist's impression: Findings/Impression: Irregular contour along the left femur appears to be chronic correlating with prior CT. Allowing for single frontal only pelvic views and overlying bowel gas, no acute radiographic abnormality is appreciated. CT scan - head: Attestation: I have reviewed the pertinent imaging results. Radiologist's impression: IMPRESSION: No evidence of acute intracranial abnormality on this unenhanced CT. Mild global parenchymal volume loss and chronic microvascular ischemic changes. CT scan of cervical spine: Attestation: I have reviewed the pertinent imaging results. Radiologist's impression: IMPRESSION: 1. No sign of acute cervical spine fracture. 2. Multilevel degenerative spondylosis. Discharge Plan Discharge Disposition: [facility] Date of Admission: 05/31/23 06:00 Attending Provider on Discharge: Evelio Chun Primary Care Provider: Provider,Not a Local Condition: Stable Anticipated Discharge Date/Time: 06/01/23 11:00 Discharge Medications: Continued citalopram 10 mg tablet 10 mg PO DAILY donepezil 10 mg tablet 10 mg PO HS cyanocobalamin (vitamin B-12) 1,000 mcg tablet 1,000 mcg PO DAILY acetaminophen 325 mg tablet 650 mg PO Q4H PRN cholecalciferol (vitamin D3) [Vitamin D3] 125 mcg (5,000 unit) tablet 125 mcg PO DAILY Discharge Orders: Discharge Order (Routine); Ordered 06/01/23 Ordered By: Evelio Chun Additional Instructions: 1. Intent is for patient to eventually return to her private residence living setting with assistance. Activity Level: Activity as Tolerated Discharge Diet: Regular Follow Up Appointments: Provider,Not a Local [Primary Care Provider] - [facility] Instructions Admit to: Assisted Living Discharge Potential: Fair Length of Stay: <30 days Can use facility standing orders?: Yes Code Status: DNR/DNI TEDs: Bilateral Knee Rehab Potential: Fair Therapy: Physical Therapy and Occupational Therapy Therapy Orders: Evaluate and Treat Oxygen: No Urinary Catheter: No Orders are good >30 days: Yes Signature: Evelio Chun
== END 2023-06-01 10:56 ==
LOC: ED 05:07 → MEDSURG 06:01
PROVIDERS: Internal Medicine; Admitting Provider Family Medicine; Emergency Provider Family Medicine; Visit Provider Family Medicine
DX: R53.81 Other malaise (principal); F03.B0 Unspecified dementia, moderate, without behavioral disturbance, psychotic disturbance, mood disturbance, and anxiety; R54 Age-related physical debility; M54.50 Low back pain, unspecified; G89.29 Other chronic pain; W19.XXXA Unspecified fall, initial encounter
CPT/HCPCS: 36415; 70450; 71045; 72100; 72125; 72170; 80048; 80053; 81001; 82550; 83605; 83690; 84443; 84484; 85025; 86140; 87086; 87631; 93005; 96360; 96372; 97116; 97161; 97165; 97530; 97535; 99285; A9270; G0378; J1650; J7030

== ENCOUNTER 2023-09-02 11:39 | Outpatient (CLI) | payer MEDICARE, BC, SELFPAY | END 2023-09-02 11:40 | disposition home or self-care (01) | LOC: AMB 09-03 17:20 | PROVIDERS: Visit Provider Emergency Medicine | DX: S09.90XA Unspecified injury of head, initial encounter (principal); W19.XXXA Unspecified fall, initial encounter; Y92.121 Bathroom in nursing home as the place of occurrence of the external cause | CPT/HCPCS: A0998 ==

== ENCOUNTER 2024-07-11 08:07 | Outpatient (CLI) | payer MEDICARE, BC, SELFPAY | END 2024-07-11 08:08 | disposition home or self-care (01) | LOC: AMB 07-12 11:10 | PROVIDERS: Visit Provider Emergency Medicine | DX: R53.1 Weakness (principal) | CPT/HCPCS: A0998 ==

== ENCOUNTER 2024-12-10 08:35 | Outpatient (CLI) | payer MEDICARE, BC, SELFPAY ==
--- NOTE | 2025-01-07 08:25 | ED.GENADULT ---
HPI - General Adult History of Present Illness HPI narrative: This is an addendum to my ER note from this patient from 12/10. I inadvertently omitted my physical exam from my prior note. Physical exam Constitutional: Appears well-developed and well-nourished. Alert. Does have dementia. HENT: Head: Atraumatic. Nose: Nose normal. Mouth/Throat: Oral mucosa is clear and moist. Not desiccated or cracked. no trismus. Eyes: Conjunctivae normal. EOM normal. Pupils equal, round, and reactive to light. No scleral icterus. Neck: Normal range of motion. Neck supple. No tracheal deviation present. Cardiovascular: Normal rate, regular rhythm. No gallop. No friction rub. No murmur heard. Symmetric radial artery pulses Pulmonary/Chest: Effort normal. No stridor. No respiratory distress. No wheezes. No rales. No rhonchi . No tenderness. Abdominal: Soft. Bowel sounds normal. No distension. No mass. Epigastric and right upper quadrant tenderness. No rebound. No guarding. Musculoskeletal: RUE: Normal range of motion. No tenderness. No deformity LUE: Normal range of motion. No tenderness. No deformity RLE: Normal range of motion. No edema. No tenderness. No deformity LLE: Normal range of motion. No edema. No tenderness. No deformity Neurological: Alert and oriented at her baseline.. Normal strength. CN II-VII intact. No sensory deficit. GCS eye subscore is 4. GCS verbal subscore is 5. GCS motor subscore is 6. Normal coordination Skin: Skin is warm and dry. No rash noted. No pallor. Normal capillary refill. Psychiatric: Does have dementia but her psychiatric status appears at her face. Normal mood. Normal affect. Related Data Home Medications ?Medication ?Instructions ?Recorded ?Confirmed acetaminophen 325 mg tablet 650 mg PO Q4H PRN 05/31/23 05/31/23 cholecalciferol (vitamin D3) 125 125 mcg PO DAILY 05/31/23 05/31/23 mcg (5,000 unit) tablet (Vitamin D3) citalopram 10 mg tablet 10 mg PO DAILY 05/31/23 05/31/23 cyanocobalamin (vitamin B-12) 1,000 mcg PO DAILY 05/31/23 05/31/23 1,000 mcg tablet donepezil 10 mg tablet 10 mg PO HS 05/31/23 05/31/23 Allergies Allergy/AdvReac Type Severity Reaction Status Date / Time No Known Drug Allergies Allergy Verified 05/31/23 01:46 PFSH PFS Social History What is your current living situation?: I presently have a place to live Problems where you live: no known problems Problems where you live details: home alone with [employer] 4 hours/day In the past 12 months, utilities in danger of being shut off: no In past 12 months, lack of transportation kept you from medical appts, meetings, work, or getting things needed for daily living: no In the past 12 mos, have been you worried that your food would run out before you had money to buy more?: never true In the past 12 mos, the food you bought just didn't last and you didn't have money to buy more?: never true Smoking Status: Never smoker Do you use any of these nicotine containing products: None How often do you have a drink containing alcohol: never AUDIT-C Alcohol total score: 0 Non-prescribed substance use: denies use How often does anyone, including family, friends and others, physically hurt you: never How often does anyone, including family, friends and others, insult or talk down to you: never How often does anyone, including family, friends and others, threaten you with harm: never How often does anyone, including family, friends and others, scream or curse at you: never Discharge Plan Discharge Disposition: Home, Self-Care Primary Care Provider: Fatmata Ching Discharge Medications: No Action citalopram 10 mg tablet 10 mg PO DAILY donepezil 10 mg tablet 10 mg PO HS cyanocobalamin (vitamin B-12) 1,000 mcg tablet 1,000 mcg PO DAILY acetaminophen 325 mg tablet 650 mg PO Q4H PRN cholecalciferol (vitamin D3) [Vitamin D3] 125 mcg (5,000 unit) tablet 125 mcg PO DAILY
== END 2024-12-10 08:36 | disposition home or self-care (01) ==
LOC: AMB 12-11 11:59
PROVIDERS: PCP Family Medicine; Visit Provider Emergency Medicine
DX: R07.89 Other chest pain (principal)
CPT/HCPCS: A0425; A0427

== ENCOUNTER 2024-12-10 09:13 | Emergency (ER) | payer MEDICARE, BC, SELFPAY ==
[2024-12-10] VITALS (49 sets, daily range): BP systolic 98–154; BP diastolic 43–69; PULSE 55–67; RESP 0–32; TEMP 36.3–36.6; O2SAT 84–98; BMI 38.4
--- OUTSIDE RECORDS SUMMARY | 2024-12-10 09:25 | XMS_ITS | Clinical Summary ---
Author Organization [employer] [facility] Address [address] [place] [id number] Care Team Providers Care Customer Services Supervisor Name Role Phone Bobbi Dejesus Beny Unavailable [phone] Fatmata Ching MD Primary Care Prov ider Allergies No known active allergies Medications Walker - 4 wheelsIndicatio ns:Falls frequently For home use. Length of need: 99 months 1 Each 04/17/19 24 Active Shower ChairIndication s:Falls frequently For home use. Sliding bath chair would be helpful. 1 Each 04/17/19 24 Active cholecalciferol (VITAMIN D3) 5,000 unit capsuleIndicati ons:Vitamin D deficiency Take 1 Capsule (5,000 units) by mouth once daily. 90 Capsule 2 04/18/19 25 Active cyanocobalamin (VITAMIN B12) 1,000 mcg tabletIndicatio ns:Memory change Take 1 Tablet (1,000 mcg) by mouth once daily. 90 Tablet 2 04/18/19 25 Active donepeziL (ARICEPT) 10 mg tabletIndicatio ns:Late onset Alzheimer's dementia without behavioral disturbance (HC) Take 1 Tablet (10 mg) by mouth at bedtime. 90 Tablet 3 04/18/19 25 Active loperamide (IMODIUM) 2 mg capsuleIndicati ons:Diarrhea, unspecified type As needed Take 4mg by mouth with 1st loose stool, then 2mg with each subsequent loose stool. Max 16 mg in 24 hrs 48 Capsule 11 04/18/19 25 Active Additional Information Patient not taking.Reported on 10/17/2024 ibuprofen (ADVIL; MOTRIN) 200 mg tabletIndicatio ns:Pain Take 2 Tablets (400 mg) by mouth every 6 hours if needed for Pain. 90 Tablet 1 04/18/19 25 Active citalopram (CELEXA) 10 mg tabletIndicatio ns:Memory change Take 1 Tablet (10 mg) by mouth once daily in the morning. 90 Tablet 3 04/18/19 25 Active Graduated Compression StockingsIndica tions:Bilateral lower extremity edema For personal use. Length: calf Strength: 16-20 mmHg Circumference in cm: Ankle Right a 27.5cm left 27.5 cm Right Calf 47.0 cm left 43.5 cm change in side on right side as of 04/18/2024 Ankle to calf length 35. 1 Packet 05/01/19 25 Active acetaminophen (TYLENOL) 325 mg tabletIndicatio ns:Pain Take 2 Tablets (650 mg) by mouth every 4 hours if needed for Pain. Max acetaminophen dose: 3000mg in 24 hrs. 100 Tablet 5 10/01/19 25 Active wheat dextrin (Benefiber Sugar Free (dextrin)) 3 gram/3.8 gram powdIndications :Diarrhea, unspecified type Mix 9 g in liquid then take by mouth once daily if needed (constipation). 270 g 11 11/13/19 25 Active wheat dextrin (Benefiber Sugar Free (dextrin)) 3 gram/3.8 gram powdIndications :Diarrhea, unspecified type Mix 9 g in liquid then take by mouth. 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 Declines Endocrine follow up 04/30/2015 Other hammer toe (acquired) 05/31/2011 Vitamin D deficiency 01/03/2009 Impaired fasting glucose 12/31/2008 Low back pain 12/31/2008 Cystocele, midline 12/31/2008 Unspecified essential hypertension Encounters Date Type Department Care Team Description 11/12/2024 Refill [facility] [address] [place] [address] Fatmata Ching MD Medication Management 10/17/2024 11:55 AM CDT Office Visit [facility] [address] [place] [address] Fatmata Ching MD Pain (Fell in August and having lower back and hip pain ); Diarrhea (Continues to have diarrhea ) 10/17/2024 Travel 10/16/2024 Travel 09/26/2024 Refill [facility] [address] [place] [address] Fatmata Ching MD Refill Request (Acetaminophen tab 325mg) from Last 3 Months Immunizations Immunization Administration Dates Next Due AMB Influenza, IIV3 (Age >=3 years)(Flu Clinic Only) 01/02/2012,01/05/2011 COVID-19 VACCINE SPIKEVAX (M ODERNA 50MCG/0.5ML) 12YO+ PFS 01/15/2024 COVID-19 vaccine (Moderna 10 0mcg/0.5mL) PF, MDV 02/08/2021,06/02/2020,05/04/2020 COVID-19 vaccine (NeuMedics-Bio NTech 30mcg/0.3mL) 12YO+ BIVALENT PF, MDV 07/13/2022 COVID-19 vaccine (Pfizer-Bio NTech 30mcg/0.3mL) 12YO+ SILVIA-SUCROSE PF, MDV 08/12/2021 Influenza, High-dose Inactivated 01/15/2024,11/18,01/16/2015 Influenza, High-dose Quadriv alent Inactivated 12/20/2019 Influenza, IIV3 (Age >=3 years) 01/01/2013,12/03,12/25/2006 Influenza, IIV4 12/04/2013,03/31/2009 Influenza, Inactivated AIIV4 (Age 65+ Years) Preserv Free 12/14/2022,12/06/2021 Influenza, Inactivated IIV3 (Age 65+ Years) Preserv Free 12/18/2017 Pneumococcal Poly,23-Valent (Pneumovax) 06/02/19 07 Pneumococcal conj 13-Valent (Prevnar 13) 016 RSV, Bivalent Vaccine Recons tituted (Abrysvo 120MCG/0.5mL) 01/12/2023 Td (Age >=7 Years) 08/30/2004 Td, Preservative Free (age >= 7 Years) 5 Tdap 01/12/2023,05/08/2012 Zoster (Shingrix-RZV, recombinant) 04/23/2019,,09/06/2018 Zoster (Zostavax-ZVL, live) 12/03/2008 Family History Medical History Relation Name Comments Good Health Daughter Katia Thyroid Disease Daughter Katia Arthritis Father Other Father in 90s of old age Alzheimer's disease Mother into her 70's when started Glaucoma Mother glaucoma, ALS Hyperlipidemia Sister Other Sister brain bleed pas sed away trauma initially and then spontaneous Good Health Son Cancer-breast No Family History Relation Name Status Comments Daughter Katia Alive Father Mother Sister Son Alive Social History Tobacco Use Types Packs/Day Years Used Date Smoking Tobacco: Never Smokeless Tobacco: Never Tobacco Cessation:Counseling Given: No Alcohol Use Standard Drinks/Week Comments No 0 (1 standard drink = 0.6 oz pur e alcohol) PHQ-2 Answer Date Recorded PHQ-2 TOTAL SCORE 1 04/18/2024 Social Connections Answer Date Recorded Do you often feel lonely or isolated from those around you? 0 04/18/2024 Financial Resource Strain Answer Date R ecorded Difficulty of Paying Living Expenses 3 04/18/2024 Difficulty of Paying Living Expenses Not on file 04/18/2024 Food Insecurity Answer Date Recorded Do you worry your food will run out before you are able to buy more? 1 04/18/2024 Transportation Needs Answer Date Record ed Does lack of transportation keep you from medica l appointments? 1 04/18/2024 Does lack of transportation keep you from work, meetings or getting things that you need? 1 04/18/2024 Housing Stability Answer Date Recorded What is your housing situation today? 1 04/18/2024 Utilities Answer Date Recorded Do you have trouble paying f or utilities (for example, heat, electricity, water, phone)? 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 Gender Identity Not on file Sexual Orientation Not on file Obstetrics History Para Term AB IAB SAB Ectopic Multiple Livin g Live Births 2 2 Date Outcome GA Total Labor Labor/2nd/3rd Weight Sex Type Anes PTL Ivon A1 A5 Name Clin Last Filed Vital Signs Vital Sign Reading Time Taken Comments Blood Pressure 162/80 10/17/2024 12:59 PM CDT Pulse 50 10/17/2024 12:59 PM CDT Temperature 36.7 C (98 F) 08/20/2019 11:26 AM CDT Respiratory Rate 20 12/15/2020 9:12 AM CDT Oxygen Saturation 98% 10/17/2024 11:43 AM CDT Inhaled Oxygen Concentration - - Weight 89.9 kg (198 lb 3.2 oz) 10/17/2024 11:43 AM CDT Height 156.1 cm (5' 1.46) 04/18/2024 9:50 AM CS T Body Mass Index 36.89 04/18/2024 9:50 AM CORKING MACHINE OPERATOR Plan of Treatment Health Maintenance Due Date Last Done Comments Influenza Vaccine (#1) 2024 , 12/14/2022, 12/06/2021, Additional history exists BMI (ht and wt on same day) for age 18+ 04/18/2025 04/18/2024, 04/17/2023, 08/12/2021, Additional history exists Depression screening for age 12+ 04/18/2025 04/18/2024, 04/17/2023, 10/25/2021, Additional history exists Medicare Wellness for age 65+ 04/19/2025 04/18/2024, 04/17/2023, 08/12/2021, Additional history exists Tetanus booster 01/12/2033 01/12/2023, 04/20, 08/30/2004, Additional history exists DEXA/DXA scan for age 65+ Completed 02/01/2016, Pneumococcal series for age 50+ Completed 02/01/2016, 06/01/2006 Zoster (shingles) series for age 50+ Completed 04/23/2019, 12/06/2018, 09/06/2018, Additional history exists RSV vaccine for adults or Completed 01/12/2023 COVID-19 vaccine series Completed 07/11/19, 01/15/2024, 01/12/2023, Additional history exists Hepatitis B series for 19+ Aged Out N o longer eligible based on patient's age to complete this topic Procedures Procedure Name Priority Date/Time Associated Diagnosis Comments XR DXA BONE DENSITY 2 SITES AXIAL Routine 02/01/2016 2:36 PM CORKING MACHINE OPERATOR Asymptomatic menopausal state from Last 3 Months or Most Recently Relevant to Health Maintenance Results * (ABNORMAL) XR DEXA BONE DENSITY 2 SITES [29523.1] (02/01/2016 2:36 PM CORKING MACHINE OPERATOR) Anatomical Region Laterality Modality Spine, HIPS, HIPL, HIPR Other Narrative 02/03/2016 4:30 PM CORKING MACHINE OPERATOR Please see scanned document for results of this study. 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
--- NOTE | 2024-12-10 10:53 | ED.GENADULT ---
HPI - General Adult General Date Seen: 12/10/24 Chief complaint: Abdominal Pain Stated complaint: chest pain Time Seen by Provider: 12/10/24 10:47 History of Present Illness HPI narrative: 84-year-old female with a history of dementia presenting to the ER this morning with her care provider who helps provide history. Unfortunately, her care provider today is a person who is not normally with her so does not know her very well. Apparently she had abdominal discomfort and nausea overnight with some vomiting. 911 was called this morning. The patient has normal care provider is on vacation. Per medical records she has history of dementia, cholecystectomy, hysterectomy, kidney stones. She was admitted to [facility] in May 2023 after being found on the floor at home. Looks like she was discharged to [facility] enhance living. Post recent primary care records at through Dr. Gomez got her in the [employer] system. She had been seen in September after having had some diarrhea and some left hip pain. She resides at [facility]. According to those records she has a history of elevated parathyroid hormone, hypercalcemia, Alzheimer's disease, depression, kidney stones, pulsed orders for do not resuscitate, hypertension. Med list included Tylenol, vitamin-D, Celexa, vitamin B12, Aricept, ibuprofen p.r.n., loperamide PN. Related Data Home Medications ?Medication ?Instructions ?Recorded ?Confirmed acetaminophen 325 mg tablet 650 mg PO Q4H PRN 05/31/23 05/31/23 cholecalciferol (vitamin D3) 125 125 mcg PO DAILY 05/31/23 05/31/23 mcg (5,000 unit) tablet (Vitamin D3) citalopram 10 mg tablet 10 mg PO DAILY 05/31/23 05/31/23 cyanocobalamin (vitamin B-12) 1,000 mcg PO DAILY 05/31/23 05/31/23 1,000 mcg tablet donepezil 10 mg tablet 10 mg PO HS 05/31/23 05/31/23 Allergies Allergy/AdvReac Type Severity Reaction Status Date / Time No Known Drug Allergies Allergy Verified 05/31/23 01:46 [facility] Social History What is your current living situation?: I presently have a place to live Problems where you live: no known problems Problems where you live details: home alone with [employer] 4 hours/day In the past 12 months, utilities in danger of being shut off: no In past 12 months, lack of transportation kept you from medical appts, meetings, work, or getting things needed for daily living: no In the past 12 mos, have been you worried that your food would run out before you had money to buy more?: never true In the past 12 mos, the food you bought just didn't last and you didn't have money to buy more?: never true Smoking Status: Never smoker Do you use any of these nicotine containing products: None How often do you have a drink containing alcohol: never AUDIT-C Alcohol total score: 0 Non-prescribed substance use: denies use How often does anyone, including family, friends and others, physically hurt you: never How often does anyone, including family, friends and others, insult or talk down to you: never How often does anyone, including family, friends and others, threaten you with harm: never How often does anyone, including family, friends and others, scream or curse at you: never Exam Const: Vital Signs, click to edit/add: Vital Signs - 24 hr 12/10/24 09:23 12/10/24 09:31 12/10/24 09:40 Temperature 97.9 F Pulse Rate Pulse Rate [Pulse Oximeter] 65 Respiratory Rate 18 12 Blood Pressure Blood Pressure [Ri ght Upper Arm] 154/69 H Pulse Oximetry 97 92 96 Oxygen Delivery Me thod Room Air Oxygen Flow Rate 12/10/24 09:45 12/10/24 09:50 12/10/24 09:54 Temperature Pulse Rate 65 Pulse Rate [Pulse Oximeter] Respiratory Rate 32 H 12 Blood Pressure Blood Pressure [Ri ght Upper Arm] Pulse Oximetry 95 84 L 92 Oxygen Delivery Me thod Nasal Cannula Oxygen Flow Rate 2 12/10/24 10:00 12/10/24 10:00 12/10/24 10:15 Temperature Pulse Rate 61 63 Pulse Rate [Pulse Oximeter] Respiratory Rate 0 L 10 L Blood Pressure Blood Pressure [Ri ght Upper Arm] Pulse Oximetry 94 93 95 Oxygen Delivery Me thod Nasal Cannula Oxygen Flow Rate 2 12/10/24 10:30 12/10/24 10:45 12/10/24 11:00 Temperature Pulse Rate 61 65 57 L Pulse Rate [Pulse Oximeter] Respiratory Rate 10 L 14 Blood Pressure Blood Pressure [Ri ght Upper Arm] Pulse Oximetry 95 98 97 Oxygen Delivery Me thod Oxygen Flow Rate 12/10/24 11:23 12/10/24 11:24 12/10/24 11:30 Temperature Pulse Rate 59 L 61 60 Pulse Rate [Pulse Oximeter] Respiratory Rate 9 L 14 11 L Blood Pressure 139/59 L Blood Pressure [Ri ght Upper Arm] Pulse Oximetry 95 93 93 Oxygen Delivery Me thod Oxygen Flow Rate 12/10/24 11:45 12/10/24 12:00 12/10/24 12:15 Temperature Pulse Rate 60 60 61 Pulse Rate [Pulse Oximeter] Respiratory Rate 7 L 15 15 Blood Pressure Blood Pressure [Ri ght Upper Arm] Pulse Oximetry 95 88 Oxygen Delivery Me thod Oxygen Flow Rate 12/10/24 12:30 12/10/24 13:00 12/10/24 13:15 Temperature Pulse Rate 62 61 Pulse Rate [Pulse Oximeter] Respiratory Rate 14 13 12 Blood Pressure Blood Pressure [Ri ght Upper Arm] Pulse Oximetry Oxygen Delivery Me thod Oxygen Flow Rate 12/10/24 13:30 12/10/24 13:45 12/10/24 14:00 Temperature Pulse Rate 61 60 61 Pulse Rate [Pulse Oximeter] Respiratory Rate 11 L Blood Pressure Blood Pressure [Ri ght Upper Arm] Pulse Oximetry 92 91 93 Oxygen Delivery Me thod Room Air Oxygen Flow Rate 12/10/24 14:15 12/10/24 14:30 12/10/24 14:45 Temperature Pulse Rate 60 56 L 58 L Pulse Rate [Pulse Oximeter] Respiratory Rate 8 L 11 L 5 L Blood Pressure Blood Pressure [Ri ght Upper Arm] Pulse Oximetry 91 92 91 Oxygen Delivery Me thod Oxygen Flow Rate 12/10/24 15:00 12/10/24 15:03 12/10/24 15:04 Temperature Pulse Rate 62 61 Pulse Rate [Pulse Oximeter] Respiratory Rate 13 10 L 11 L Blood Pressure 125/53 L Blood Pressure [Ri ght Upper Arm] Pulse Oximetry 95 94 Oxygen Delivery Me thod Room Air Oxygen Flow Rate 12/10/24 15:15 12/10/24 15:30 12/10/24 15:33 Temperature Pulse Rate 65 62 Pulse Rate [Pulse Oximeter] Respiratory Rate 14 Blood Pressure 113/48 L Blood Pressure [Ri ght Upper Arm] Pulse Oximetry 94 93 Oxygen Delivery Me thod Room Air Room Air Room Air Oxygen Flow Rate 12/10/24 15:45 12/10/24 16:00 12/10/24 16:02 Temperature Pulse Rate 59 L 60 Pulse Rate [Pulse Oximeter] Respiratory Rate 18 16 Blood Pressure 104/47 L Blood Pressure [Ri ght Upper Arm] Pulse Oximetry 93 89 Oxygen Delivery Me thod Room Air Room Air Room Air Oxygen Flow Rate Course Course ED Course: Recheck-my review the patient's chest CT shows no pulmonary emboli. No obvious pneumonia. She does seem to have a dilated round structure in her head of her pancreas. (Dilated pancreatic duct? ) Reevaluation(s) Reevaluation #1: Recheck-off oxygen. Breathing on room air sats in the low 90s. Discussed the patient's findings with her. Also discussed with her daughter Katia. Vital Signs Vital signs: Initial Vital Signs Temperature 97.9 F 12/10/24 09:23 Temperature Source Temporal Artery Scan 12/10/24 09:23 Pulse Rate 65 12/10/24 09:23 Respiratory Rate 18 12/10/24 09:23 Blood Pressure 154/69 H 12/10/24 09:23 Blood Pressure Mean 97 12/10/24 09:23 Pulse Oximetry 97 12/10/24 09:23 Oxygen Delivery Method Room Air 12/10/24 09:23 Vital Signs Temperature 97.9 F 12/10/24 09:23 Pulse Rate 65 12/10/24 09:23 Respiratory Rate 18 12/10/24 09:23 Blood Pressure 154/69 H 12/10/24 09:23 Pulse Oximetry 97 12/10/24 09:23 Oxygen Delivery Method Room Air 12/10/24 09:23 Temperature 97.9 F 12/10/24 09:23 Pulse Rate 60 12/10/24 16:02 Respiratory Rate 16 12/10/24 16:02 Blood Pressure 104/47 L 12/10/24 16:02 Pulse Oximetry 89 12/10/24 16:02 Oxygen Delivery Method Room Air 12/10/24 16:02 Oxygen Flow Rate 2 12/10/24 10:00 Medications Administered Medications: Discontinued Medications Generic Name Dose Route Start Last Admin Trade Name Freq PRN Reason Stop Dose Admin Piperacillin Sod/Tazobactam 100 mls @ 200 mls/hr 12/10/24 14:49 12/10/24 15:02 Sod 4.5 gm/ Sodium Chloride IVPB 12/10/24 14:50 200 mls/hr ONCE ONE Administration Medical Decision Making MDM Narrative Medical decision making narrative: 84-year-old female presenting to the ER this morning because she had an episode of vomiting overnight early this morning and was having pain in either abdomen or her chest. Difficult to know for sure because of the patient's underlying dementia. Differential is broad. Considering causes of chest pain: EKG is obtained and shows no definite ischemia. Troponin is normal. Given hypoxia, Consider possible PE prompted chest CT scan and is negative for any obvious large PE. Is no evidence for pneumonia, pneumothorax, pulmonary edema, pleural effusion, rib fracture. COVID neg. Considering causes for abdominal pain. Laboratory workup shows markedly abnormal LFTs and lipase suggestive of pancreatitis. CT imaging confirms dilatation of the common hepatic duct and common bile duct without waist-like stricture in the distal common bile duct. She has previous cholecystectomy. No obvious stone. No obvious pancreatic mass causing external compression of the bile duct. Cause of the pancreatitis and abnormal LFTs unclear. Could be stricture of the bile duct. Patient is not febrile. Total white count is normal at 9.3, but differential shows 90% neutrophils. Will add Zosyn for possible evolving cholangitis but the patient is not febrile . Patient will need further workup with ERCP or MRCP. ERCP not available here in [place] therefore transfer is indicated. Incidentally CT scan also shows evidence for a 6 mm stone in the distal left ureter just proximal to the UVJ. Urinalysis is negative for any sign of infection but does show 1+ blood, ketones. BUN and Cr are normal. D/w patient , and her Daughter Katia. They agree with plan for transfer for further workup to a hospital with GI and ERCP capabilities. Lab Data Labs: Lab Results 12/10/24 12/10/24 Range/Units 11:15 11:40 WBC 9.29 (4.50-11.00) K/uL RBC 4.59 (4.00-5.20) m/uL Hgb 14.4 (12.0-16.0) gm/dL Hct 43.5 (33.0-51.0) % MCV 95 (80-100) fL MCH 31 (26-34) pg MCHC 33 (32-36) gm/dL RDW Coeff of Nicholas 13.7 (11.5-15.5) % Plt Count 287 (140-440) K/uL Neut % (Auto) 89.1 H (42.0-72.0) % Lymph % (Auto) 6.5 L (20-44) % Dodge % (Auto) 4.1 (0.0-11.0) % Eos % (Auto) 0.0 (0.0-7.0) % Baso % (Auto) 0.1 (0.0-3.0) % Neut # (Auto) 8.30 H (1.7-7.0) K/uL Lymph # (Auto) 0.60 L (0.90-2.90) K/uL Dodge # (Auto) 0.40 (0.00-0.90) K/UL Eos # (Auto) 0.00 (0.00-0.50) K/uL Baso # (Auto) 0.01 (0.00-0.30) K/uL Abs Immat Gran (auto) 0.02 (0.00-0.30) K/uL Imm/Tot Granulo (auto) 0.2 % Sodium 135 (135-149) mmol/L Potassium 3.6 (3.6-5.1) mmol/L Chloride 97 (96-114) mmol/L Carbon Dioxide 29 (20-32) mmol/L Anion Gap 9 (7-15) mEq/L BUN 9 (7-30) mg/dL Creatinine 0.5 (0.5-1.5) mg/dL Estimated Creat Clear 33.71 Estimated GFR 93 ml/min Glucose 157 H (60-115) mg/dL Calcium 10.6 (8.4-10.6) mg/dL Total Bilirubin 7.2 H (0.1-1.5) mg/dL AST 632 H (12-35) U/L ALT 664 H (4-35) U/L Alkaline Phosphatase 733 H (40-150) U/L Troponin I < 0.01 (0.01-0.04) ng/mL Total Protein 8.1 (6.0-8.3) g/dL Albumin 4.3 (3.3-5.0) g/dL Lipase 6700 H (23-300) U/L Urine Color Yellow (Yellow) Urine Appearance Clear (Clear) Urine pH 8.0 (5.0-8.5) Ur Specific Willard 1.020 (1.000-1.030) Urine Protein Trace A (Negative) Urine Glucose (UA) Trace A (Negative) Urine Ketones 2+ A (Negative) Urine Blood 1+ A (Negative) Urine Nitrite Negative (Negative) Urine Bilirubin 1+ A (Negative) Urine Urobilinogen 1.0 (0.2-1.0) Ur Leukocyte Esterase Negative (Negative) Urine RBC 0-2 (0-2) Urine WBC 0-2 (0-5) Ur Squamous Epith Cells None (None-Few) Urine Bacteria None (None) SARS-CoV-2 (PCR) Negative SARS-CoV-2 (Negative) Influenza Type A (PCR) Negative PCR FLU A (Negative) Influenza Type B (PCR) Negative PCR FLU B (Negative) RSV (PCR) Negative PCR RSV (Negative) Imaging Data CT scan - chest: Attestation: I have reviewed the pertinent imaging results. Radiologist's impression: IMPRESSION: 1. Within limitations of motion artifact there is no evidence of pulmonary embolus. Distal segmental and subsegmental pulmonary emboli are not excluded based on this exam. 2. No acute airspace disease. 3. Dilatation of the common bile duct with apparent mild wall thickening and enhancement is incompletely visualized but may be infectious/inflammatory in the appropriate clinical setting. Please refer to CT abdomen and pelvis report same day. CT scan - abdomen: Attestation: I have reviewed the pertinent imaging results. Radiologist's impression: IMPRESSION: 1. The common hepatic duct measures 16 mm and tapers distally measuring 11 mm at the level of the common bile duct, just above the upper limit of normal following cholecystectomy. There is a waist like constriction of the distal common bile duct (series 3; image 41) consistent with a stricture. No extrinsic mass is identified to explain this finding. This could be related to prior intervention. Note is otherwise made of mural hyperenhancement of the common hepatic and cystic ducts consistent with nonspecific cholangitis. Laboratory correlation is recommended. Consider gastroenterology consultation/referral for further evaluation and management. 2. Obstructing 6 mm distal left ureteral stone located just proximal to the ureterovesical junction. Associated mural hyperenhancement of the upstream left ureter is consistent with ureteritis. No periureteral fat stranding. Recommend clinical correlation as to any cooperative evidence of an upper urinary tract infection. ECG Data Attestation: I personally reviewed and interpreted this ECG as follows: Interpretation: Sinus rhythm with fusion complex Rate 66 DE interval 172 Normal QRS axis No ST segment elevation or depression QTC 460, QTC 482 Discharge Plan Discharge Clinical Impression: Pancreatitis, Abnormal LFTs, Bile duct abnormality, Kidney stone Patient Disposition: Xfer Other Prescriptions: No Action citalopram 10 mg tablet 10 mg PO DAILY donepezil 10 mg tablet 10 mg PO HS cyanocobalamin (vitamin B-12) 1,000 mcg tablet 1,000 mcg PO DAILY acetaminophen 325 mg tablet 650 mg PO Q4H PRN cholecalciferol (vitamin D3) [Vitamin D3] 125 mcg (5,000 unit) tablet 125 mcg PO DAILY Stand Alone Forms: [facility] Info Instructions
--- NOTE | 2024-12-10 11:05 | CRLHL7_ITS ---
For Patients: As a result of the 21st Century Cures Act, medical imaging exams and procedure reports are released immediately into your electronic medical record. You may view this report before your referring provider. If you have questions, please contact your health care provider. INDICATION: Vomiting, abd pain. (Sic) COMPARISON: 09/03/2020 and 05/26/2019 TECHNIQUE: CT of the abdomen and pelvis with 95 cc of Isovue 370 intravenous contrast. Please note that all CT scans at this facility use dose modulation, iterative reconstruction, and/or weight-based dosing when appropriate to reduce radiation dose to as low as reasonably achievable. FINDINGS: ABDOMEN Liver: Normal contour and attenuation. No significant focal lesion. No intrahepatic biliary ductal dilatation. Patent portal veins. Patent hepatic veins. Gallbladder: Cholecystectomy. The common hepatic duct measures 16 mm and tapers distally, measuring 11 mm at the level of the common bile duct, just above the upper limit of normal following cholecystectomy. There is a waist like constriction of the distal common bile duct (series 3; image 41) consistent with a stricture. No extrinsic mass is identified to explain this finding. This could be related to prior intervention. Note is otherwise made of mural hyperenhancement of the common hepatic and cystic ducts consistent with nonspecific cholangitis. Laboratory correlation is recommended. Consider gastroenterology consultation/referral for further evaluation and management. Pancreas: Normal contour and attenuation. No peripancreatic inflammatory changes. No significant focal lesion. Normal main duct caliber. Spleen: Not enlarged. No significant focal lesion. Patent splenic artery and vein. Adrenal Glands: Symmetrical adrenal glands. No significant focal lesion. Kidneys: 6 mm obstructing stone in the left ureter just proximal to the ureterovesical junction. Associated mural hyperenhancement of the upstream left ureter consistent with ureteritis. No periureteral fat stranding. Recommend clinical correlation as to any cooperative evidence of an upper urinary tract infection. There is otherwise made of findings consistent with Bosniak 2 benign right renal cortical cysts otherwise too small to characterize. Punctate calcification in the cortex of the lower pole of the left kidney (2; 76). Gastrointestinal tract: Normal caliber, attenuation and wall thickness of the gastrointestinal tract. Diverticulosis of the descending and sigmoid colon without associated inflammatory changes. Normal small bowel mesentery. Normal appendix. Vascular: Chronic aortoiliac atherosclerotic mural calcification. Abdominal aorta and its major proximal branches including the celiac, superior mesenteric, inferior mesenteric, renal, and bilateral common iliac arteries are patent. Patent superior mesenteric vein. Peritoneal Cavity/Retroperitoneum: No ascites. No adenopathy. PELVIS No bladder lesion is identified. Hysterectomy. No significant ascites. No adenopathy. SKELETON [employer] B[employer]ALL Right periumbilical hernia. Hernia sac measures 2.5 cm. Hernia neck 1.3 cm (series 2; image 116). Bilateral hip osteoarthrosis. Multilevel thoracolumbar spondylosis. Grade 1 anterolisthesis of L5 on S1. LOWER THORAX Bilateral lower lobe posterior/dependent hypoventilatory changes. Please refer to the separate same-day chest CT report. IMPRESSION: 1. The common hepatic duct measures 16 mm and tapers distally measuring 11 mm at the level of the common bile duct, just above the upper limit of normal following cholecystectomy. There is a waist like constriction of the distal common bile duct (series 3; image 41) consistent with a stricture. No extrinsic mass is identified to explain this finding. This could be related to prior intervention. Note is otherwise made of mural hyperenhancement of the common hepatic and cystic ducts consistent with nonspecific cholangitis. Laboratory correlation is recommended. Consider gastroenterology consultation/referral for further evaluation and management. 2. Obstructing 6 mm distal left ureteral stone located just proximal to the ureterovesical junction. Associated mural hyperenhancement of the upstream left ureter is consistent with ureteritis. No periureteral fat stranding. Recommend clinical correlation as to any cooperative evidence of an upper urinary tract infection. Please refer to the separate same-day chest CT report Please note that all CT scans at this facility use dose modulation, iterative reconstruction, and/or weight-based dosing when appropriate to reduce radiation dose to as low as reasonably achievable. Dictated by Yusuf Saldivar MD @ 12/10/2024 2:02:31 PM (Electronically Signed)
--- NOTE | 2024-12-10 11:05 | CRLHL7_ITS ---
For Patients: As a result of the Century Cures Act, medical imaging exams and procedure reports are released immediately into your electronic medical record. You may view this report before your referring provider. If you have questions, please contact your health care provider. INDICATION: Hypoxia. Vomiting. Chest pain. TECHNIQUE: CT chest pulmonary angiogram acquired with 95 cc of Isovue 370 IV contrast. Sagittal, coronal and maximum intensity projection reformatted images submitted for review. COMPARISON: None. FINDINGS: Within the limitations of motion artifact, there is no evidence of pulmonary embolus. Distal segmental and subsegmental pulmonary emboli are not entirely excluded based on this exam. Main pulmonary arteries normal in caliber. Aortic atherosclerosis. Thoracic aorta is normal in caliber. Heart size is within normal limits. No pathologic lymphadenopathy. No pleural or pericardial effusions. Soft tissues of thoracic wall unremarkable. No pneumothorax. Central airways are patent. Bibasilar atelectasis. Lungs are otherwise clear. There is dilatation of the common bile duct with apparent mild wall thickening and enhancement. Visualized upper abdomen is otherwise unremarkable. Degenerative changes of the spine. No acute or suspicious osseous abnormality. IMPRESSION: 1. Within limitations of motion artifact there is no evidence of pulmonary embolus. Distal segmental and subsegmental pulmonary emboli are not excluded based on this exam. 2. No acute airspace disease. 3. Dilatation of the common bile duct with apparent mild wall thickening and enhancement is incompletely visualized but may be infectious/inflammatory in the appropriate clinical setting. Please refer to CT abdomen and pelvis report same day. Dictated by Damion Jacobs MD @ 12/10/2024 1:48:19 PM Please note that all CT scans at this facility use dose modulation, iterative reconstruction, and/or weight-based dosing when appropriate to reduce radiation dose to as low as reasonably achievable. Dictated by: Damion Jacobs MD @ 12/10/2024 13:48:33 (Electronically Signed)
[2024-12-10 11:50] LABS: Appearance Urine Clear (Clear)
[2024-12-10 11:55] LABS: Hematocrit* 43.5 % (33.0-51.0); Hemoglobin* 14.4 gm/dL (12.0-16.0); Immature Granulocytes Abs Auto 0.02 K/uL (0.00-0.30); Immature Granulocytes Pct Auto 0.2 %; Lymphocytes Absolute Auto 0.60 K/uL (0.90-2.90); Mean Corpuscular HGB Conc 33 gm/dL (32-36); Mean Corpuscular Hemoglobin 31 pg (26-34); Mean Corpuscular Volume 95 fL (80-100); RDW Coefficient of Variation % 13.7 % (11.5-15.5); Red Blood Count* 4.59 m/uL (4.00-5.20); White Blood Count* 9.29 K/uL (4.50-11.00)
[2024-12-10 11:56] LABS: Slide Review Reflex No
[2024-12-10 12:07] LABS: Albumin* 4.3 g/dL (3.3-5.0); Chloride* 97 mmol/L (96-114); Potassium* 3.6 mmol/L (3.6-5.1); Sodium* 135 mmol/L (135-149)
[2024-12-10 12:10] LABS: Alanine Aminotransferase* 664 U/L (4-35); Alkaline Phosphatase* 733 U/L (40-150); Anion Gap 9 mEq/L (7-15); Aspartate Amino Transferase* 632 U/L (12-35); Bilirubin Total* 7.2 mg/dL (0.1-1.5); Blood Urea Nitrogen* 9 mg/dL (7-30); Carbon Dioxide* 29 mmol/L (20-32); Creatinine* 0.5 mg/dL (0.5-1.5); Est. Creatinine Clearance* 33.71; Estimated Glomerular Filt Rate 93 ml/min; Total Protein* 8.1 g/dL (6.0-8.3)
[2024-12-10 12:11] LABS: Calcium* 10.6 mg/dL (8.4-10.6); Glucose* 157 mg/dL (60-115)
[2024-12-10 12:34] LABS: PCR FLU A Negative PCR FLU A (Negative); PCR FLU B Negative PCR FLU B (Negative); PCR RSV Negative PCR RSV (Negative); SARS PCR* Negative SARS-CoV-2 (Negative)
[2024-12-10] MEDS: PIPERACILLIN/TAZOBACTAM 4.5 GM in 0.9 % SODIUM CHLORIDE Mini-bag 100 ML IVPB (15:02)
== END 2024-12-10 18:35 | disposition other institution (70) ==
PROVIDERS: Emergency Provider Emergency Medicine; PCP Family Medicine
DX: K85.90 Acute pancreatitis without necrosis or infection, unspecified (principal); N20.0 Calculus of kidney; R94.5 Abnormal results of liver function studies
CPT/HCPCS: 36415; 71275; 74177; 80053; 81001; 83690; 84484; 85025; 87631; 96365; 99285; J2543; Q9967

== ENCOUNTER 2024-12-10 18:22 | Outpatient (CLI) | payer MEDICARE, BC, SELFPAY | END 2024-12-10 18:23 | disposition home or self-care (01) | LOC: AMB 12-13 12:51 | PROVIDERS: PCP Family Medicine; Visit Provider Emergency Medicine | DX: K85.90 Acute pancreatitis without necrosis or infection, unspecified (principal); R20.0 Anesthesia of skin; R79.89 Other specified abnormal findings of blood chemistry; K82.9 Disease of gallbladder, unspecified | CPT/HCPCS: A0425; A0429 ==

== ENCOUNTER 2025-01-29 08:59 | Outpatient (CLI) | payer MEDICARE, BC, SELFPAY | END 2025-01-29 09:00 | disposition home or self-care (01) | LOC: AMB 02-01 20:24 | PROVIDERS: PCP Family Medicine; Visit Provider Emergency Medicine | DX: S29.9XXA Unspecified injury of thorax, initial encounter (principal); W06.XXXA Fall from bed, initial encounter; Y92.10 Unspecified residential institution as the place of occurrence of the external cause | CPT/HCPCS: A0425; A0427 ==

== ENCOUNTER 2025-01-29 09:42 | Observation (INO) | payer MEDICARE, BC, SELFPAY ==
--- OUTSIDE RECORDS SUMMARY | 2024-12-12 18:00 | XMS_ITS | Continuity of Care Document ---
Author Organization [facility] Address [address] [address] [place] [address] Phone Care Team Providers Care Filler Picker Name Role Phone Jacque Ruiz Unavailable Unavailable Procedures Procedure Date Subsqt Inpt Moderate ERCP w/dil, sphinc Ercp; W/endo Retro Remov Stone Init Inpt E&M Moderate Advance Directives Directive Yes / No Effective Date File Name No Information Encounters Encounter Description Practice Location Reason(s) For Visit Diagnoses Date Provider Providers Copied on Encounter Subsqt Inpt Moderate [facility], [address] [address], [place], [place], [id number], [place] tel:[phone] [facility] No Information Sep-2 Choudhary PAC Jacque. [address] [place] [address], [address], [id number], [place]. tel:[phone] Referring Provider: Jacque GUEVARA, [address], [address]. tel:[phone] [facility], [address] [address], [place], [place], [id number], [place] tel:[phone] [facility] No Information Sep-2 Mickie Pena. [address] [facility], [facility] [address], [place], [id number], [place]. tel:[phone] Referring Provider: Jean June, [address] [address], [place], [address]. tel:[phone] Init Inpt E&M Moderate [facility], [address] [address], [place], [place], [id number], tel:[phone] [facility] No Information Nov- Sirena Villagomez. [address] [place] [address], [facility] [address], [place], [place], [id number], [place]. tel:[phone] Referring Provider: Fara Ching MD [address], [place], [address]. tel:[phone] Family History Family Member Type Diagnosis Age At Onset No Information Payers Payer name Insurance type Covered democrat ID Authoriza devi(s) [employer] [place] [employer] BL [id number] Social History Type Description Quantity Date Captured Comments Sex Female Smoking Status No Information Chief Complaint And Reason For Visit No Information Reason For Referral Reason For Referral No Information History Of Present Illness Encounter Date Complaint History Of Prese nt Illness No Information Functional Status Date Functional Assessmen t No Information Instructions Date Instruction Additional Infor mation No Information Assessments Type Assessment Date No Information Patient Care Teams Name Effective Dates (start - stop) Status Members No Information
[2025-01-29] VITALS (15 sets, daily range): BP systolic 115–156; BP diastolic 47–69; PULSE 61–76; RESP 13–23; TEMP 36.4–37; O2SAT 93–97; BMI 37.4; BMI 35.3
--- OUTSIDE RECORDS SUMMARY | 2025-01-29 09:44 | XMS_ITS | Clinical Summary ---
Author Organization [facility] Address [address] [place] [id number] Care Team Providers Care Research And Evaluation Analyst Name Role Phone Bobbi Dejesus Beny Unavailable [phone] Fatmata Ching MD Primary Care Prov ider Allergies No known active allergies Medications donepeziL (ARICEPT) 10 mg tabletIndicatio ns:Late onset Alzheimer's dementia without behavioral disturbance (HC) Take 1 Tablet (10 mg) by mouth at bedtime. 90 Tablet 3 025 Active ibuprofen (ADVIL; MOTRIN) 200 mg tabletIndicatio ns:Pain Take 2 Tablets (400 mg) by mouth every 6 hours if needed for Pain. 90 Tablet 1 025 Active citalopram (CELEXA) 10 mg tabletIndicatio ns:Memory change Take 1 Tablet (10 mg) by mouth once daily in the morning. 90 Tablet 3 025 Active acetaminophen (TYLENOL) 325 mg tabletIndicatio ns:Pain Take 2 Tablets (650 mg) by mouth every 4 hours if needed for Pain. Max acetaminophen dose: 3000mg in 24 hrs. 100 Tablet 5 025 Active latanoprost (Xalatan) 0.005 % ophthalmic solution Place 1 Drop into right eye once daily in the evening. Active sennosides (SENNA) 8.6 mg tabletIndicatio ns:Acute pancreatitis without infection or necrosis, unspecified pancreatitis type (HC) Take 1 Tablet (8.6 mg) by mouth 2 times daily if needed for Constipation. 20 Tablet 025 Active docusate (COLACE) 100 mg capsuleIndicati ons:Hard stool Take 1 Capsule (100 mg) by mouth once daily. In morning 90 Capsule 3 025 Active wheat dextrin (Benefiber Sugar Free (dextrin)) 3 gram/3.8 gram powdIndications :Diarrhea, unspecified type Mix 9 g in liquid then take by mouth once daily. 270 g 11 025 Active tamsulosin 0.4 mg capsuleIndicati ons:Ureteral stone Take 1 Capsule (0.4 mg) by mouth once daily after a meal. Started in hospital for kidney stone. Stop after 4 weeks therapy 21 Capsule 025 Active cyanocobalamin (VITAMIN B12) 1,000 mcg tabletIndicatio ns:Memory change Take 1 Tablet (1,000 mcg) by mouth once daily. 90 Tablet 3 025 Active cholecalciferol (VITAMIN D3) 5,000 unit capsuleIndicati ons:Vitamin D deficiency Take 1 Capsule (5,000 units) by mouth once daily. 90 Capsule 3 025 Active cholecalciferol (VITAMIN D3) 5,000 unit capsuleIndicati ons:Vitamin D deficiency Take 1 Capsule (5,000 units) by mouth once daily. 90 Capsule 2 025 2024 Discontinued cyanocobalamin (VITAMIN B12) 1,000 mcg tabletIndicatio ns:Memory change Take 1 Tablet (1,000 mcg) by mouth once daily. 90 Tablet 2 025 2024 Discontinued Active Problems Problem Noted Date Diagnosed Date Dementia 12/11/2024 Acute pancreatitis without infection or necrosis 12/11/2024 Ureterolithiasis 12/11/2024 History of hyperparathyroidism 04/17/2023 History of renal calculi 04/17/2023 Memory change 10/25/2021 Late onset Alzheimer's demen tia without behavioral disturbance 08/12/2021 Depression, recurrent 08/12/2021 Physician orders for life-hale staining treatment (POLST) form indicates patient wish for [id number] status 08/26/2020 Osteopenia of multiple sites 12/18/2017 [...] Encounters Date Type Department Care Team Description 5 [facility]phone [facility] [address] [place] [address] Fatmata Ching MD Questions (Orders) 5 Refill [facility] [address] [place] [address] Fatmata Ching MD Refill Request (Cyanocobalamin, Cholecalciferol) 5 12:45 PM CDT Office Visit [facility] [address] [place] [address] Fatmata Ching MD Hospital F/U (Recent surgery) 5 Travel 5 Refill [facility] [address] [place] [address] Fatmata Ching MD Refill Request (Tamsulosin) 5 Travel 5 Refill [facility] [address] [place] [address] Fatmata Ching MD Medication Management 5 Patient Outreach [facility] [address] [place] [address] Zohreh Gutierrez, RN Primary RN Care Management; Hospital F/U (Lace=72) 5 3:35 PM CDT Anesthesia Event [facility] [address] [place], [place] [id number] Claudia Salguero MD Straus, Carlos J, CRNA 5 2:45 PM CDT - 5 3:50 PM CDT Surgery [facility] [address] [place] [address] Jean Corado MD ENDOSCOPIC RETROGRADE CHOLANGIOPANCREATOGRAPHY w. sphincterotomy, duct balloon sweep and duct balloon dilation 5 7:29 PM CDT - 5 12:51 PM CDT Hospital Encounter [facility] [address] [place] [address] [facility] Hospitalists [facility], MD Vicente Sanchez, ALECIA Lozoya Acute pancreatitis without infection or necrosis, unspecified pancreatitis type (HC) (Primary Dx); Ureteral stone Discharge Disposition: Home Health 5 Orders Only [facility] Scanner 1 scan: (1-Ord) [place], CT ABD PELVIS W CON, 12/10/2024 5 Orders Only [facility] Scanner 1 scan: (1-Ord) [place], CT ANGIO CHEST PE PROTOCOL, 12/10/2024 5 Travel 5 Refill [facility] [address] [place] [address] Fatmata Ching MD Medication Management from Last 3 Months Immunizations Immunization Administration Dates Next Due AMB Influenza, IIV3 (Age >=3 years)(Flu Clinic Only) 01/02/2012,01/05/2011 COVID-19 VACCINE SPIKEVAX (M ODERNA 50MCG/0.5ML) 12YO+ PFS 01/15/2024 COVID-19 vaccine (Moderna 10 0mcg/0.5mL) PF, MDV 02/08/2021,06/02/2020,05/04/2020 COVID-19 vaccine (Pfizer-Bio NTech 30mcg/0.3mL) 12YO+ BIVALENT PF, MDV 07/13/2022 COVID-19 vaccine (Pfizer-Bio NTech 30mcg/0.3mL) 12YO+ SILVIA-SUCROSE PF, MDV 08/12/2021 Influenza, High-dose Inactivated 01/15/2024,11/18,01/16/2015 Influenza, High-dose Quadriv alent Inactivated 12/20/2019 Influenza, IIV3 (Age >=3 years) 01/01/2013,12/03,12/25/2006 Influenza, IIV4 12/04/2013,03/31/2009 Influenza, Inactivated AIIV4 (Age 65+ Years) Preserv Free 12/14/2022,12/06/2021 Influenza, Inactivated IIV3 (Age 65+ Years) Preserv Free 12/26/2024,12/18/2017 Pneumococcal Poly,23-Valent (Pneumovax) 06/02/19 07 Pneumococcal conj [...] lonely or isolated from those around you? 4 12/10/2024 Alcohol Use Answer Date Recorded How often do you have a drink containing alcohol ? 0 12/26/2024 Average Number of Drinks Not on file 025 How often do you have five or more drinks on one occasion? 0 12/26/2024 Financial Resource Strain Answer Date R ecorded Difficulty of Paying Living Expenses 3 04/18/2024 Difficulty of Paying Living Expenses Not on file 04/18/2024 Food Insecurity Answer Date Recorded Do you worry your food will run out before you are able to buy more? 1 12/10/2024 Transportation Needs Answer Date Record ed Does lack of transportation keep you from medica l appointments? 1 12/10/2024 Does lack of transportation keep you from work, meetings or getting things that you need? 1 12/10/2024 Housing Stability Answer Date Recorded What is your housing situation today? 1 12/10/2024 Interpersonal Safety Answer Date Record ed Are you being hit, kicked, p ushed or yelled at (see row info)? No 12/10/2024 Interpersonal Safety Abuse 12 - 18 Not on file 12/10/2024 Interpersonal Safety Ambulatory Vulnerability No t on file 12/10/2024 Utilities Answer Date Recorded Do you have trouble paying f or utilities (for example, heat, electricity, water, phone)? 1 12/10/2024 Comments No Sex and Gender Information Value Date Recorded Sex Assigned at Not on file Legal Sex Female 6:03 AM QUILL WINDER Gender Identity Not on file Sexual Orientation Not on file Obstetrics History Para Term AB IAB SAB Ectopic Multiple Livin g Live Births 2 2 Date Outcome GA Total Labor Labor/2nd/3rd Weight Sex Type Anes PTL Ivon A1 A5 Name Clin Last Filed Vital Signs Vital Sign Reading Time Taken Comments Blood Pressure 151/76 12/26/2024 12:45 PM CDT Pulse 60 12/26/2024 12:45 PM CDT Temperature 36.7 C (98 F) 12/15/2024 7:00 AM CDT Respiratory Rate 16 12/15/2024 7:00 AM CDT Oxygen Saturation 98% 12/26/2024 12:45 PM CDT Inhaled Oxygen Concentration - - Weight 90.3 kg (199 lb) 12/26/2024 12:45 PM CDT Height 156.1 cm (5' 1.46) 12/13/2024 9:00 AM CD T Body Mass Index 37.04 12/13/2024 9:00 AM CDT Plan of Treatment Health Maintenance Due Date Last Done Comments BMI (ht and wt on same day) [...] RSV vaccine for adults or Completed 01/12/2023 Influenza Vaccine Completed 12/26/2024, , 12/14/2022, Additional history exists Hepatitis B series for 19+ Aged Out N o longer eligible based on patient's age to complete this topic Procedures Procedure Name Priority Date/Time Associated Diagnosis Comments POTASSIUM Early AM 12/15/2024 8:13 AM CDT POTASSIUM Early AM 12/14/2024 1:29 PM CDT US RENAL AND BLADDER COMPLETE Routine 11:42 AM CDT COMP METABOLIC PANEL Early AM 12/13/2024 7:30 AM CDT LIPASE Early AM 12/13/2024 7:30 AM CDT HEPATIC FUNCTION PANEL Early AM 7:30 AM CDT CBC W PLT NO DIFF Early AM 12/13/2024 7:3 0 AM CDT XR ERCP BILIARY ONLY Routine 12/12/2024 4:14 PM CDT ENDOTRACHEAL TUBE Routine 12/12/2024 3:4 9 PM CDT ENDOTRACHEAL TUBE Routine 12/12/2024 3:4 9 PM CDT ENDOSCOPIC RETROGRADE CHOLANGIOPANCREATOGRAPHY WITH SPHINCTEROTOMY AND STONE REMOVAL 12/12/2024 3:25 PM CDT See MD valdes ENDOSCOPY 12/12/2024 3:15 PM CDT HEPATIC FUNCTION PANEL Early AM 6:46 AM CDT BASIC METABOLIC PANEL Early AM 12/12/2024 6:46 AM CDT CBC W PLT NO DIFF Early AM 12/12/2024 6:4 6 AM CDT MR ABDOMEN MRCP LIVER WWO Routine 2024 9:45 PM CDT XR CHEST 1 VIEW PA OR AP NADRI 025 8:39 PM CDT XR PELVIS 1 VIEW AP AND HIP 2 VIEW BILATERAL NADIR 12/11/2024 8:39 PM CDT XR ABDOMEN 1 VIEW NADIR 12/11/2024 8:3 8 PM CDT XR SKULL EQUAL OR LESS 3 VIEWS NADIR 0 12/11/2024 8:38 PM CDT SCAN CORRESP-EKG RESULTS 025 12:07 PM CDT SCAN CORRESP-IMAGING 12/11/2024 12:07 PM CDT POTASSIUM Timed 12/11/2024 7:54 AM CDT BASIC METABOLIC PANEL Early AM 12/11/2024 7:54 AM CDT CBC W PLT NO DIFF Early AM 12/11/2024 7:5 4 AM CDT HEPATIC FUNCTION PANEL Early AM 5 7:54 AM CDT CBC WITH AUTO DIFFERENTIAL Today 12/10 9:17 PM CDT TRIGLYCERIDES STAT 12/10/2024 9:17 PM CDT LIPASE Today 12/10/2024 9:17 PM CDT CBC WITH AUTO DIFFERENTIAL Today 12/10 9:17 PM CDT BASIC METABOLIC PANEL Timed 12/10/2024 9:17 PM CDT HEPATIC FUNCTION PANEL STAT 9:17 PM CDT SCAN-CT INTERPRETATION 5 12:00 AM CDT SCAN-CT INTERPRETATION 5 12:00 AM CDT XR DXA BONE DENSITY 2 SITES AXIAL Routine 02/01/2016 2:36 PM QUILL WINDER Asymptomatic menopausal state from Last 3 Months or Most Recently Relevant to Health Maintenance Results * (ABNORMAL) POTASSIUM (12/15/2024 8:13 AM CDT) Only the most recent of3 resultswithin the time period is included. POTASSIUM 3.3(L) 3.5 - 5.1 mmol/L 12/15/2024 9:14 AM CDT [facility] Blood BLOOD SPECIMEN / Unknown Butterfly / Unknown 12/15/2024 8:13 AM CDT 12/15/2024 8:55 AM CDT Prateek ALSTON CHEMISTRY Final Result [facility] [address] [place] [address], [place] * US RENAL AND BLADDER COMPLETE (12/14/2024 11:42 AM CDT) Anatomical Region Laterality Modality Abdomen, AORTA, KIDNEYS Ultrasou nd 12/14/2024 3:10 PM CDT Impressions 12/14/2024 3:10 PM CDT Unremarkable renal and bladder ultrasound evaluation. Dictated by Vikas Gates MD @ 12/14/2024 3:10:44 PM (Electronically Signed) Narrative 12/14/2024 3:10 PM CDT For Patients: As a result of the Cures Act, medical imaging exams and procedure reports are released immediately into your electronic medical record. You may view this report before your referring provider. If you have questions, please contact your health care provider. INDICATION: Flank pain TECHNIQUE: Ultrasound renal bilateral. Ruiz-scale and color Doppler sonographic images were acquired of the kidneys and urinary bladder. COMPARISON: No comparison FINDINGS: Right kidney: 11.6 cm. Left kidney: 10.4 cm. Normal echotexture and cortex. No masses, stones, or hydronephrosis. Bladder: Unremarkable. Procedure Note Vikas Gates MD - 12/14/2024 For Patients: As a result of the Cures Act, medical imagingexams and procedure reports are released immediately into your electronicmedical record. You may view this report before your referring provider.If you have questions, please contact your health care provider. INDICATION: Flank pain TECHNIQUE: Ultrasound renal bilateral. Ruiz-scale and color Doppler sonographicimages were acquired of the kidneys and urinary bladder. COMPARISON: No comparison FINDINGS: Right kidney: 11.6 cm. Left kidney: 10.4 cm. Normal echotexture and cortex. No masses, stones, or hydronephrosis. Bladder: Unremarkable. IMPRESSION: Unremarkable renal and bladder ultrasound evaluation. Dictated by Vikas Gates MD @ 12/14/2024 3:10:44 PM (Electronically Signed) us Prateek ALSTON US Final Result * (ABNORMAL) CBC no diff AM (12/13/2024 7:30 AM CDT) Only the most recent of3 resultswithin the time period is included. WHITE BLOOD COUNT 6.1 4.5 - 11.0 thou/cu mm 12/13/2024 7:56 AM CDT [facility] RED BLOOD COUNT 3.97(L) 4.00 - 5.20 mil/cu mm 12/13/2024 7:56 AM CDT [facility] HEMOGLOBIN 12.6 12.0 - 16.0 g/dL 12/13/2024 7:56 AM CDT [facility] HEMATOCRIT 38.6 33.0 - 51.0 % 12/13/2024 7:56 AM CDT [facility] MCV 97 80 - 100 fL 12/13/2024 7:56 AM CDT [facility] MCH 31.7 26.0 - 34.0 pg 12/13/2024 7:56 AM CDT [facility] MCHC 32.6 32.0 - 36.0 g/dL 12/13/2024 7:56 AM CDT [facility] RDW 13.8 11.5 - 15.5 % 12/13/2024 7:56 AM CDT [facility] PLATELET COUNT 222 140 - 440 thou/cu mm 12/13/2024 7:56 AM CDT [facility] MPV 11.0 6.5 - 11.0 fL 12/13/2024 7:56 AM CDT [facility] NRBC 0.0 % 12/13/2024 7:56 AM CDT [facility] ABS NRBC 0.0 thou /cu mm 12/13/2024 7:56 AM CDT [facility] Blood BLOOD SPECIMEN / Unknown Butterfly / Unknown 12/13/2024 7:30 AM CDT 12/13/2024 7:48 AM CDT Prateek ALSTON HEMATOLOGY Final Result Performing Organization Address City/[facility]/ZIP Co de Phone Number [facility] [address] [place] [id number], [place] * Lipase AM (12/13/2024 7:30 AM CDT) Only the most recent of2 resultswithin the time period is included. LIPASE 20.5 13.0 - 60.0 IU/L 12/13/2024 8:32 AM CDT [facility] Blood BLOOD SPECIMEN / Unknown Butterfly / Unknown 12/13/2024 7:30 AM CDT 12/13/2024 7:48 AM CDT Prateek Zhang [facility] Final Result Performing Organization Address [facility] Co de Phone Number [facility] [address] [place] [id number], [place] * (ABNORMAL) Hepatic function panel AM (12/13/2024 7:30 AM CDT) Only the most recent of4 resultswithin the time period is included. ALBUMIN 2.9(L) 4.0 - 4.9 g/dL 12/13/2024 8:32 AM CDT [facility] PROTEIN,TOTAL 5.6(L) 6.0 - 8.0 g/dL 12/13/2024 8:32 AM T [facility] BILIRUBIN,TOTAL 1.2 0.0 - 1.2 mg/dL 12/13/2024 8:32 AM CDT [facility] BILIRUBIN,DIRECT 0.8(H) 0.0 - 0.2 mg/dL 12/13/2024 8:32 AM CDT [facility] BILIRUBIN,INDIRE CT 0.4 0.2 - 0.8 mg/dL 12/13/2024 8:32 AM CDT [facility] ALK PHOSPHATASE 439(H) 35 - 104 IU/L 12/13/2024 8:32 AM CDT [facility] ALT (SGPT) 370(H) 10 - 35 IU/L 12/13/2024 8:32 AM CDT [facility] AST (SGOT) 166(H) 10 - 35 IU/L 12/13/2024 8:32 AM CDT [facility] Blood BLOOD SPECIMEN / Unknown Butterfly / Unknown 12/13/2024 7:30 AM CDT 12/13/2024 7:48 AM CDT Prateek ALSTON CHEMISTRY Final Result [facility] [address] [place] [address], * (ABNORMAL) COMP METABOLIC PANEL (12/13/2024 7:30 AM CDT) SODIUM 137 136 - 145 mmol/L 12/13/2024 8:32 AM CDT [facility] POTASSIUM 4.0 3.5 - 5.1 mmol/L 12/13/2024 8:32 AM CDT [facility] CHLORIDE 103 98 - 107 mmol/L 12/13/2024 8:32 AM CDT [facility] CO2,TOTAL 26 22 - 29 mmol/L 12/13/2024 8:32 AM CDT [facility] ANION GAP 8 5 - 18 12/13/2024 8:32 AM CDT [facility] GLUCOSE 112(H) 70 - 99 mg/dL 12/13/2024 8:32 AM CDT [facility] CALCIUM 10.0 8.8 - 10.4 mg/dL 12/13/2024 8:32 AM CDT [facility] Comment: Reference ranges for this test were updated on 01/23/2024 to reflect our healthy population more accurately. Reference range changes are not retroactively applied to results, but previous results using the same methodology can be interpreted in the context of the new reference range. BUN 10 8 - 23 mg/dL 12/13/2024 8:32 AM CDT [facility] CREATININE 0.48(L) 0.50 - 0.90 mg/dL 12/13/2024 8:32 AM CDT [facility] BUN/CREAT RATIO 21(H) 10 - 20 8:32 AM CDT [facility] eGFR >90 >90 mL/min/1. 73m2 12/13/2024 8:32 AM T [facility] Comment:As of 2021, eG FR is calculated by the CKD-EPI creatinine equation without race adjustment. eGFR can be influenced by muscle mass, exercise, and diet. The reported eGFR is an estimation only and is only applicable if the renal function is stable. ALBUMIN 2.9(L) 4.0 - 4.9 g/dL 12/13/2024 8:32 AM CDT [facility] PROTEIN,TOTAL 5.6(L) 6.0 - 8.0 g/dL 12/13/2024 8:32 AM CDT [facility] BILIRUBIN,TOTAL 1.2 0.0 - 1.2 mg/dL 12/13/2024 8:32 AM CDT [facility] ALK PHOSPHATASE 439(H) 35 - 104 IU/L 12/13/2024 8:32 AM CDT [facility] ALT (SGPT) 370(H) 10 - 35 IU/L 12/13/2024 8:32 AM T [facility] AST (SGOT) 166(H) 10 - 35 IU/L 12/13/2024 8:32 AM CDT [facility] Blood BLOOD SPECIMEN / Unknown Butterfly / Unknown 12/13/2024 7:30 AM CDT 12/13/2024 7:48 AM CDT us Jean Corado MD CHEMISTRY Evelia l Result [facility] [address] [place] [address], [place] * XR ERCP BILIARY ONLY (12/12/2024 4:14 PM CDT) Anatomical Region Laterality Modality GALLBLADDER, PANCREAS, LIVER Oth er Narrative 12/12/2024 3:36 PM CDT 2 minutes 12 seconds fluoroscopy time was provided. See operative/procedure report for further information. us Jean Corado MD FLUOROSCOPY Evelia l Result * HCHG TUBE PR1, HCHG STYLET PR1 (12/12/2024 3:49 PM CDT) Narrative Surinder Mendez CRNA - 12/12/2024 3:49 PM CDT Surinder Mendez HAND STAMPER 12/12/2024 3:50 PM Procedure: ETT Patient location during procedure: OR ETT Properties Mask Ventilation: easy Final Technique: direct laryngoscopy Type: straight Location: oral Tube Size: 7.0 mm Stylet: yes Laryngoscope Blade: Mac Blade Size: 3 Insertion Attempts: 2 Placement Verification: auscultation, end tidal CO2, symmetrical chest wall movement and cuff palpation Assessment: atraumatic and dentition unchanged Secured at: 21 Measured From: lips Difficulty: 0 (not difficult) us Claudia Salguero MD ANESTHESIA PX NOTE ORDERABL ES Final Result * ENDOSCOPY (12/12/2024 3:15 PM CDT) 12/12/2024 3:15 PM CDT Narrative Transcriptions Jean Corado MD - 12/12/2024 4:23 PM CDT [facility] Patient Name: Danita Wallace Procedure Date: 12/12/2024 Gender: Female Date of : 1940 Admit Type: Inpatient Procedure: ERCP Proceduralist: Jean Corado MD - [facility] Indications/Pre-Op Diagnosis: Bile duct stone(s), Elevated liver enzymes Medications: General Anesthesia, Indomethacin 100 mg MO Procedure Description: Risk of bleeding, infection, perforation, pancreatitis, need for surgery, remote chance of and alternatives were discussed, andthe patient gave informed consent. The endoscope ERCP [id number] was passed through the mouth,and advanced to the duodenum and used to inject contrast into the bileduct. The ERCP was accomplished without difficulty. The patient toleratedthe procedure well. Complications: No immediate complications. Estimated Blood Loss & Specimen: Estimated blood loss was minimal. Specimen collected: None Findings: A visual aid expert film of the abdomen was obtained. Surgical clips, consistent with a previous cholecystectomy, were seen in the area of the right upper quadrant of the abdomen. The esophagus was successfullyintubated under direct vision. The scope was advanced to a normal major papillain the descending duodenum without detailed examination of the pharynx, larynx and associated structures, and upper GI tract. The upper GItract was grossly normal. A long 0.035 inch Soft Jagwire was passed intothe biliary tree. The short-nosed traction sphincterotome was passed over the guidewire and the bile duct was then deeply cannulated. Contrastwas injected. I personally interpreted the bile duct images. There wasbrisk flow of contrast through the ducts. Image quality was excellent. Contrast extended to the hepatic ducts. The bile duct was markedly dilated up to 15 mm. 5 large stones were seen in the bile duct.Biliary sphincterotomy was made with a traction (standard) sphincterotome.There was no post-sphincterotomy bleeding. The sphincterotomy site was then dilated with a TTS balloon up to 13.5 mm, held for 2 minutes. The biliary tree was then laboriously swept with a 15 mm balloon startingat the bifurcation. Multiple large stones were removed, none remainingon sweeps or gentle occlusion cholangiogram. The scope was reduced, the stomach decompressed, and the procedure ended. The pancreatic duct was intentionally not cannulated. Impressions/Post-Op Diagnosis: - Choledocholithiasis was found. Complete removal was accomplished by biliary sphincterotomy, sphincteroplasty, and balloon extraction. Recommendation: - Return patient to hospital pretty for ongoing care. - Clears today, advance as tolerated tomorrow. - Follow symptoms, CBC, LFTs. Jean Corado MD 12/12/2024 4:23:35 PM This report has been signed electronically. Note Initiated On: 12/12/2024 3:15 PM Jean Corado MD PROCEDURE ORD Evelia l Result * (ABNORMAL) Basic metabolic panel AM (12/12/2024 6:46 AM CDT) Only the most recent of3 resultswithin the time period is included. SODIUM 136 136 - 145 mmol/L 12/12/2024 7:24 AM CDT [facility] POTASSIUM 3.9 3.5 - 5.1 mmol/L 12/12/2024 7:24 AM CDT [facility] CHLORIDE 102 98 - 107 mmol/L 12/12/2024 7:24 AM CDT [facility] CO2,TOTAL 26 22 - 29 mmol/L 12/12/2024 7:24 AM CDT [facility] ANION GAP 8 5 - 18 12/12/2024 7:24 AM CDT [facility] GLUCOSE 88 70 - 99 mg/dL 12/12/2024 7:24 AM CDT [facility] CALCIUM 10.0 8.8 - 10.4 mg/dL 12/12/2024 7:24 AM T [facility] Comment: Reference ranges for this test were updated on 01/23/2024 to reflect our healthy population more accurately. Reference range changes are not retroactively applied to results, but previous results using the same methodology can be interpreted in the context of the new reference range. BUN 16 8 - 23 mg/dL 12/12/2024 7:24 AM CDT [facility] CREATININE 0.56 0.50 - 0.90 mg/dL 12/12/2024 7:24 AM CDT [facility] BUN/CREAT RATIO 29(H) 10 - 20 7:24 AM CDT [facility] eGFR >90 >90 mL/min/1.7 3m2 12/12/2024 7:24 AM CDT [facility] Comment:As of 2021, eG FR is calculated by the CKD-EPI creatinine equation without race adjustment. eGFR can be influenced by muscle mass, exercise, and diet. The reported eGFR is an estimation only and is only applicable if the renal function is stable. Blood BLOOD SPECIMEN / Unknown Venipuncture / Unknown 12/12/2024 6:46 AM CDT 12/12/2024 6:54 AM CDT us Prateek ALSTON CHEMISTRY Final Result [facility] [address] [place] [address], [place] * MR ABDOMEN MRCP LIVER WWO (12/11/2024 9:45 PM CDT) Anatomical Region Laterality Modality Abdomen, LIVER Magnetic Resonan ce 12/12/2024 7:47 AM CDT Impressions 12/12/2024 7:47 AM CDT 1. Extensive choledocholithiasis with moderate biliary ductal dilatation. 2. Long common pancreaticobiliary junction channel. 3. Mild acute interstitial edematous pancreatitis. No pancreatic duct dilatation. 4. 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 Consider follow-up exam in 2 years. 5. Mild diffuse hepatic steatosis. Dictated by Faith Mackenzie MD @ 12/12/2024 7:47:07 AM (Electronically Signed) Narrative 12/12/2024 7:47 AM CDT For Patients: As a result of the Cures Act, medical imaging exams and procedure reports are released immediately into your electronic medical record. You may view this report before your referring provider. If you have questions, please contact your health care provider. INDICATION: Pancreatitis, dilated ducts COMPARISON: Outside CT 12/10/2024 TECHNIQUE: Multiplanar, multisequence MR imaging of the abdomen, without and with IV contrast. The MRCP protocol was utilized, which includes 3D reconstructed images of the biliary tree. Contrast: 20 mL Clariscan FINDINGS: Mild diffuse hepatic steatosis. The liver size is normal. No cirrhosis. No focal liver lesions. Cholecystectomy. [id number] intrahepatic biliary ductal dilatation without beading or stenosis. There is a 6 millimeter stone in the central left hepatic duct on series 11, image 20. There are numerous stones from the channing hepatis down to the ampulla. The extrahepatic bile duct measures 1.6 cm. No significant biliary wall thickening or hyperenhancement. Conventional pancreaticobiliary junction. The common channel measures 1.2 centimeters on series 7, image 15. The pancreatic duct is not dilated. Mildly edematous pancreatic parenchyma. No substantial peripancreatic fluid. There is a 0.8 x 0.6 centimeter nonenhancing side-branch IPMN in the pancreatic tail. No solid pancreatic mass. Normal spleen. Normal adrenal glands. Normal renal size and position. Several renal cysts. No upper urinary tract dilatation. No ascites. No adenopathy. No dilated or inflamed bowel in the field of view. Procedure Note Faith Mackenzie MD - 12/12/2024 For Patients: As a result of the Cures Act, medical imagingexams and procedure reports are released immediately into your electronicmedical record. You may view this report before your referring provider.If you have questions, please contact your health care provider. INDICATION: Pancreatitis, dilated ducts COMPARISON: Outside CT 12/10/2024 TECHNIQUE: Multiplanar, multisequence MR imaging of the abdomen, without and with IVcontrast. The MRCP protocol was utilized, which includes 3D reconstructedimages of the biliary tree. Contrast: 20 mL Clariscan FINDINGS: Mild diffuse hepatic steatosis. The liver size is normal. No cirrhosis. Nofocal liver lesions. Cholecystectomy. Icgu-ey-rhffcxei intrahepatic biliary ductal dilatationwithout beading or stenosis. There is a 6 millimeter stone in the centralleft hepatic duct on series 11, image 20. There are numerous stones fromthe channing hepatis down to the ampulla. The extrahepatic bile duct measures1.6 cm. No significant biliary wall thickening or hyperenhancement.Conventional pancreaticobiliary junction. The common channel measures 1.2centimeters on series 7, image 15. The pancreatic duct is not dilated. Mildly edematous pancreaticparenchyma. No substantial peripancreatic fluid. There is a 0.8 x 0.6centimeter nonenhancing side-branch IPMN in the pancreatic tail. No solidpancreatic mass. Normal spleen. Normal adrenal glands. Normal renal size and position. Several renal cysts. No upper urinarytract dilatation. No ascites. No adenopathy. No dilated or inflamed bowel in the field of view. IMPRESSION: 1. Extensive choledocholithiasis with moderate biliary ductal dilatation. 2. Long common pancreaticobiliary junction channel. 3. Mild acute interstitial edematous pancreatitis. No pancreatic ductdilatation. 4. There is a 0.8 centimeter pancreatic side-branch IPMN in the tail.Consider follow-up exam in 2 years. 5. Mild diffuse hepatic steatosis. Dictated by Faith Mackenzie MD @ 12/12/2024 7:47:07 AM (Electronically Signed) Jorge Diaz MD MR Final Result * XR CHEST 1 VIEW PA OR AP (12/11/2024 8:39 PM CDT) Anatomical Region Laterality Modality CHEST, THORAX, Lung, HEART Digit al Radiography 12/12/2024 3:26 AM CDT Impressions 12/12/2024 3:26 AM CDT 1. The cardiac silhouette is mildly enlarged but may be accentuated by the portable technique. Dictated by Navarro Gomez MD @ 12/12/2024 3:26:41 AM Dictated by: Navarro Gomez MD @ 12/12/2024 03:26:48 (Electronically Signed) Narrative 12/12/2024 3:26 AM CDT For Patients: As a result of the Century Cures Act, medical imaging exams and procedure reports are released immediately into your electronic medical record. You may view this report before your referring provider. If you have questions, please contact your health care provider. INDICATION: Evaluation for metal prior to MRI TECHNIQUE: Chest radiograph 1 view COMPARISON: 07/16/2024 FINDINGS: The sensitivity and specificity of the exam are moderately limited by the patient`s body habitus. Mediastinum: The mediastinum is normal in appearance. The cardiac silhouette is mildly enlarged but may be accentuated by the portable technique. Lung: Both lungs are unremarkable in appearance. No sign of pleural effusion seen. No pneumothorax is identified. Bone and Soft tissue: A metallic suture anchor is seen over the right humeral head. Procedure Note Navarro Gomez MD - 12/12/2024 For Patients: As a result of the Cures Act, medical imagingexams and procedure reports are released immediately into your electronicmedical record. You may view this report before your referring provider.If you have questions, please contact your health care provider. INDICATION: Evaluation for metal prior to MRI TECHNIQUE: Chest radiograph 1 view COMPARISON: 07/16/2024 FINDINGS: The sensitivity and specificity of the exam are moderatelylimited by the patient`s body habitus. Mediastinum: The mediastinum is normal in appearance. The cardiacsilhouette is mildly enlarged but may be accentuated by the portabletechnique. Lung: Both lungs are unremarkable in appearance. No sign of pleuraleffusion seen. No pneumothorax is identified. Bone and Soft tissue: A metallic suture anchor is seen over the righthumeral head. IMPRESSION: 1. The cardiac silhouette is mildly enlarged but may be accentuated by theportable technique. Dictated by Navarro Gomez MD @ 12/12/2024 3:26:41 AM Dictated by: Navarro Gomez MD @ 12/12/2024 03:26:48 (Electronically Signed) us Harpal Leonardo MD GENERAL IMAGING Final Result * XR hip BILATERAL 2 views with AP pelvis TODAY (12/11/2024 8:39 PM CDT) Anatomical Region Laterality Modality HIPS, HIPL, HIPR, Pelvis Digital Radiography 12/12/2024 3:26 AM CDT Impressions 12/12/2024 3:26 AM CDT 1. No acute osseous injuries are noted. Dictated by Navarro Gomez MD @ 12/12/2024 3:25:56 AM Dictated by: Navarro Gomez MD @ 12/12/2024 03:26:00 (Electronically Signed) Narrative 12/12/2024 3:26 AM CDT For Patients: As a result of the Cures Act, medical imaging exams and procedure reports are released immediately into your electronic medical record. You may view this report before your referring provider. If you have questions, please contact your health care provider. INDICATION: MRI screening TECHNIQUE: Pelvis radiograph, Hip radiograph 5 views bilateral COMPARISON: None FINDINGS: Bone: No acute fractures or aggressive bone lesions are identified. Severe diffuse osteopenia is present. Joint: Severe bilateral hip osteoarthritis is noted. The visualized sacroiliac joints are unremarkable in appearance. The pubic symphysis is normal in appearance. Soft tissue: Unremarkable. No radiopaque foreign bodies are seen. Procedure Note Navarro Gomez MD - 12/12/2024 For Patients: As a result of the Cures Act, medical imagingexams and procedure reports are released immediately into your electronicmedical record. You may view this report before your referring provider.If you have questions, please contact your health care provider. INDICATION: MRI screening TECHNIQUE: Pelvis radiograph, Hip radiograph 5 views bilateral COMPARISON: None FINDINGS: Bone: No acute fractures or aggressive bone lesions are identified. Severediffuse osteopenia is present. Joint: Severe bilateral hip osteoarthritis is noted. The visualizedsacroiliac joints are unremarkable in appearance. The pubic symphysis isnormal in appearance. Soft tissue: Unremarkable. No radiopaque foreign bodies are seen. IMPRESSION: 1. No acute osseous injuries are noted. Dictated by Navarro Gomez MD @ 12/12/2024 3:25:56 AM Dictated by: Navarro Gomez MD @ 12/12/2024 03:26:00 (Electronically Signed) Harpal Leonardo MD GENERAL IMAGING Final Result * XR ABDOMEN 1 VIEW (12/11/2024 8:38 PM CDT) Anatomical Region Laterality Modality Abdomen Digital Radiogra phy 12/12/2024 3:24 AM CDT Impressions 12/12/2024 3:24 AM CDT 1. Unremarkable appearance of the visualized abdomen. Dictated by Navarro Gomez MD @ 12/12/2024 3:24:50 AM Dictated by: Navarro Gomez MD @ 12/12/2024 03:24:58 (Electronically Signed) Narrative 12/12/2024 3:24 AM CDT For Patients: As a result of the Cures Act, medical imaging exams and procedure reports are released immediately into your electronic medical record. You may view this report before your referring provider. If you have questions, please contact your health care provider. INDICATION: Abdominal pain TECHNIQUE: Abdomen Pelvis radiograph 1 view COMPARISON: None FINDINGS: The sensitivity and specificity of the exam are severely limited by the patient`s body habitus. Bowel: The epigastrium and low pelvis are excluded and cannot be evaluated. The bowel gas pattern is normal without evidence of bowel obstruction. Soft tissue: No evidence of pneumoperitoneum present. No suspicious calcifications noted. Surgical clips are noted in the right upper quadrant from prior cholecystectomy. Bone: Unremarkable for age. Procedure Note Navarro Gomez MD - 12/12/2024 For Patients: As a result of the Cures Act, medical imagingexams and procedure reports are released immediately into your electronicmedical record. You may view this report before your referring provider.If you have questions, please contact your health care provider. INDICATION: Abdominal pain TECHNIQUE: Abdomen Pelvis radiograph 1 view COMPARISON: None FINDINGS: The sensitivity and specificity of the exam are severely limitedby the patient`s body habitus. Bowel: The epigastrium and low pelvis are excluded and cannot beevaluated. The bowel gas pattern is normal without evidence of bowelobstruction. Soft tissue: No evidence of pneumoperitoneum present. No suspiciouscalcifications noted. Surgical clips are noted in the right upper quadrantfrom prior cholecystectomy. Bone: Unremarkable for age. IMPRESSION: 1. Unremarkable appearance of the visualized abdomen. Dictated by Navarro Gomez MD @ 12/12/2024 3:24:50 AM Dictated by: Navarro Gomez MD @ 12/12/2024 03:24:58 (Electronically Signed) Harpal Leonardo MD GENERAL IMAGING Final Result * XR SKULL EQUAL OR LESS 3 VIEWS (12/11/2024 8:38 PM CDT) Anatomical Region Laterality Modality SKULL Digital Radiogra phy 12/12/2024 5:38 PM CDT Impressions 12/12/2024 5:38 PM CDT No metallic foreign body about the orbits. Dictated by Damion Jacobs MD @ 12/12/2024 5:38:10 PM (Electronically Signed) Narrative 12/12/2024 5:38 PM CDT For Patients: As a result of the Cures Act, medical imaging exams and procedure reports are released immediately into your electronic medical record. You may view this report before your referring provider. If you have questions, please contact your health care provider. INDICATION: Metallic screening for MRI. TECHNIQUE: Orbits two views. COMPARISON: None. FINDINGS: No metallic foreign body about the orbits. Multiple dental restorations. Osseous structures and soft tissues elsewhere as imaged are unremarkable. Procedure Note Damion Jacobs, DO - 12/12/2024 For Patients: As a result of the Cures Act, medical imagingexams and procedure reports are released immediately into your electronicmedical record. You may view this report before your referring provider.If you have questions, please contact your health care provider. INDICATION: Metallic screening for MRI. TECHNIQUE: Orbits two views. COMPARISON: None. FINDINGS: No metallic foreign body about the orbits. Multiple dental restorations.Osseous structures and soft tissues elsewhere as imaged are unremarkable. IMPRESSION: No metallic foreign body about the orbits. Dictated by Damion Jacobs MD @ 12/12/2024 5:38:10 PM (Electronically Signed) Harpal Leonardo MD GENERAL IMAGING Final Result * SCAN CORRESP-EKG RESULTS (12/11/2024 12:07 PM CDT) Narrative 12/11/2024 12:07 PM CDT Ordered by an unspecified provider. Other Clinical Staff OTHER Final Resul t * SCAN CORRESP-IMAGING (12/11/2024 12:07 PM CDT) Anatomical Region Laterality Modality Other Narrative 12/11/2024 12:07 PM CDT Ordered by an unspecified provider. us Other Clinical Staff OTHER Final Resul t * CBC WITH AUTO DIFFERENTIAL (12/10/2024 9:17 PM CDT) WHITE BLOOD COUNT 8.8 4.5 - 11.0 thou/cu mm 12/10/2024 9:29 PM CDT [facility] RED BLOOD COUNT 4.25 4.00 - 5.20 mil/cu mm 12/10/2024 9:29 PM CDT [facility] HEMOGLOBIN 13.4 12.0 - 16.0 g/dL 12/10/2024 9:29 PM CDT [facility] HEMATOCRIT 40.7 33.0 - 51.0 % 12/10/2024 9:29 PM CDT [facility] MCV 96 80 - 100 fL 12/10/2024 9:29 PM CDT [facility] MCH 31.5 26.0 - 34.0 pg 12/10/2024 9:29 PM CDT [facility] MCHC 32.9 32.0 - 36.0 g/dL 12/10/2024 9:29 PM CDT [facility] RDW 14.2 11.5 - 15.5 % 12/10/2024 9:29 PM CDT [facility] PLATELET COUNT 258 140 - 440 thou/cu mm 12/10/2024 9:29 PM CDT [facility] MPV 10.6 6.5 - 11.0 fL 12/10/2024 9:29 PM CDT [facility] NRBC 0.0 % 12/10/2024 9:29 PM CDT [facility] ABS NRBC 0.0 thou /cu mm 12/10/2024 9:29 PM CDT [facility] % NEUT 75.5 % 12/10/2024 9:29 PM CDT [facility] % LYMPH 15.8 % 12/10/2024 9:29 PM CDT [facility] % MONO 7.7 % 12/10/2024 9:29 PM CDT [facility] % EOS 0.2 % 12/10/2024 9:29 PM CDT [facility] % BASO 0.2 % 12/10/2024 9:29 PM CDT [facility] % IMMATURE GRAN (METAS,MYELOS,MO OS) 0.6 % 12/10/2024 9:29 PM CDT [facility] ABSOLUTE NEUTROPHILS 6.6 1.7 - 7.0 thou/cu mm 12/10/2024 9:29 PM CDT [facility] ABSOLUTE LYMPHOCYTES 1.4 0.9 - 2.9 thou/cu mm 12/10/2024 9:29 PM CDT [facility] ABSOLUTE MONOCYTES 0.7 <0.9 thou/cu mm 12/10/2024 9:29 PM CDT [facility] ABSOLUTE EOSINOPHILS 0.0 <0.5 thou/cu mm 12/10/2024 9:29 PM CDT [facility] ABSOLUTE BASOPHILS 0.0 <0.3 thou/cu mm 12/10/2024 9:29 PM CDT [facility] ABSOLUTE IMMATURE GRANULOCYTES(MET ,MYELOS,PROS) 0.1 <0.3 thou/cu mm 12/10/2024 9:29 PM CDT [facility] Blood BLOOD SPECIMEN / Unknown Butterfly / Unknown 12/10/2024 9:17 PM CDT 12/10/2024 9:23 PM CDT us Ra Haywood MD HEMATOLOGY Final Result [facility] [address] [place] [address], [place] * Triglycerides AM (12/10/2024 9:17 PM CDT) TRIGLYCERIDES 59 <150 mg/dL 12/10/2024 9:47 PM CDT [facility] PROVIDER ORDERED STATUS RANDOM 12/10/2024 9:47 PM CDT [facility] Blood BLOOD SPECIMEN / Unknown Butterfly / Unknown 12/10/2024 9:17 PM CDT 12/10/2024 9:23 PM CDT us Ra Haywood MD CHEMISTRY Final Result [facility] [address] [place] [address], * SCAN-CT INTERPRETATION (12/10/2024 12:00 AM CDT) Only the most recent of2 resultswithin the time period is included. Anatomical Region Laterality Modality Other us Scanner OTHER Final Result * (ABNORMAL) XR DEXA BONE DENSITY 2 SITES [[id number]] (02/01/2016 2:36 PM QUILL WINDER) Anatomical Region Laterality Modality Spine, HIPS, HIPL, HIPR Other Narrative 02/03/2016 4:30 PM QUILL WINDER Please see scanned document for results of this study. 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 POLST 12/14/2024 Healthcare Directive 03/23/2018 12:24 PM HE ALTHCARE DIRECTIVE, [employer] [place], 03/09/17 * DNR (Latest Code Status on File) Date Activated Date Inactivated Comments 12/10/2024 11:57 PM 12/15/2024 3:02 PM Discussed p atient and daughter Question Answer Comments Code Status Discussion: Reviewed Preferences * Full Code Date Activated Date Inactivated Comments 12/10/2024 7:50 PM 12/10/2024 11:57 PM Question Answer Comments Code Status Discussion: Reviewed Preferences Care Teams Research And Evaluation Analyst Relationship Specialty Start Date End Date Fatmata Ching MD [address] [place] [address] PCP - General Family Practice 10/24/16 Bobbi Dejesus AuD Audiology 07/11/12
--- NOTE | 2025-01-29 09:54 | ED.GENADULT ---
HPI - General Adult General Date Seen: 01/29/25 Chief complaint: Back Injury/Pain Stated complaint: Fall Time Seen by Provider: 01/29/25 09:54 History of Present Illness HPI narrative: 84 yo F with history of dementia is brought to the ER this morning by EMS. History of from EMS is that she has dementia. She lives at [facility]. She apparently was found on the floor her apartment this morning. Unclear how long she had been on the floor but patient was able to recall that she got some food or something yesterday evening and may have fallen early in the night. Potentially on the floor for several hours. Patient had been incontinent of urine on the floor and EMS felt there was a stable urine smell (possibly UTI? Versus just dry urine sitting up for several hours). Patient was complaining of severe low back pain and EMS had to give her intranasal fentanyl and then IV fentanyl so they could get her off the floor and onto the cot. She is confused. Disoriented to date but that of apparently is her baseline. No apparent head injury, extremity injury. Vital signs stable other than she was hypertensive due to pain. History from the patient is limited. She is not really not able to tell me what happened. When asked what happened she says that she thought someone was post leave some food in there. She does not recall falling. She does recall being on the floor. She can not explain to me when she fell or how long she was on the floor. When asked her why she was on the floor she says it was because there was a soft spot there. She does have a history of some left hip pain. I saw her here in the ER couple of months ago in November for chest pain. She has a past medical history of Alzheimer's dementia, elevated parathyroid hormone kidney stones, depression. Her POLST form indicates do not resuscitate. Current medication list provided from the patient's living center includes: Acetaminophen Imodium p.r.n. Benefiber p.r.n. citalopram Donepezil ibuprofen Lasanoprost eyedrops MiraLax Senna Vitamin-D Related Data Home Medications ?Medication ?Instructions ?Recorded ?Confirmed acetaminophen 325 mg tablet 650 mg PO Q4H PRN 05/31/23 01/29/25 cholecalciferol (vitamin D3) 125 125 mcg PO DAILY 03/13/24 11/12/25 mcg (5,000 unit) tablet (Vitamin D3) citalopram 10 mg tablet 10 mg PO DAILY 05/31/23 01/29/25 cyanocobalamin (vitamin B-12) 1,000 mcg PO DAILY 05/31/23 01/29/25 1,000 mcg tablet donepezil 10 mg tablet 10 mg PO HS 05/31/23 01/29/25 latanoprost 0.005 % eye drops 1 drp ophthalmic (eye) DAILY 01/29/25 01/29/25 loperamide 2 mg capsule PO 01/29/25 Allergies Allergy/AdvReac Type Severity Reaction Status Date / Time No Known Drug Allergies Allergy Verified 01/29/25 13:36 PFSH PFS Social History What is your current living situation?: I presently have a place to live Problems where you live: no known problems Problems where you live details: 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 In the past 12 months, utilities in danger of being shut off: no In past 12 months, lack of transportation kept you from medical appts, meetings, work, or getting things needed for daily living: no In the past 12 mos, have been you worried that your food would run out before you had money to buy more?: never true In the past 12 mos, the food you bought just didn't last and you didn't have money to buy more?: never true Smoking Status: Never smoker Do you use any of these nicotine containing products: None How often do you have a drink containing alcohol: never AUDIT-C Alcohol total score: 0 Non-prescribed substance use: denies use How often does anyone, including family, friends and others, physically hurt you: never How often does anyone, including family, friends and others, insult or talk down to you: never How often does anyone, including family, friends and others, threaten you with harm: never How often does anyone, including family, friends and others, scream or curse at you: never service: No Exam Narrative: Exam Narrative: Primary Survey: A- patent. Speaking clearly. Phonation normal. No stridor. B- breathing easily. Lung sounds clear and equal. Oxygen saturation normal on room air C- no active bleeding. Blood pressure stable. Symmetric pulses and cap refill in 4 extremities. D- alert and oriented to person but not place or date.. GCS 15. Left lower extremity weakness which the patient leads me to believe may be chronic Constitutional: Appears well-developed and well-nourished. Alert. Conversant and very polite. She is confused. Non toxic. HENT: Head: No depressed skull fracture, Raccoon Eyes, Arreola's sign, or hemotympanum. Face normal. TMs normal. Nose: Nose normal. Mouth/Throat: Oral mucosa is clear and moist. no trismus. Pharynx normal. Tonsils symmetric. No tonsillar enlargement, erythema, or exudate. Eyes: Conjunctivae normal. EOM normal. Pupils equal, round, and reactive to light. No scleral icterus. Neck: Normal range of motion. Neck supple. No tracheal deviation present. Cardiovascular: Normal rate, regular rhythm. No gallop. No friction rub. No murmur heard. Symmetric radial artery pulses Pulmonary/Chest: Effort normal. No stridor. No respiratory distress. No wheezes. No rales. No rhonchi . No tenderness. Abdominal: Soft. Bowel sounds normal. No distension. No mass. No tenderness. No rebound. No guarding. Musculoskeletal: No T or L-spine tenderness although she had been endorsing severe low back pain to EMS. No step-off. No sacral ulcers. Has been incontinent of urine in her depends. RUE: Normal range of motion. No tenderness. No deformity LUE: Normal range of motion. No tenderness. No deformity RLE: Normal range of motion. No edema. No tenderness. No deformity LLE: Normal range of motion. No edema. No tenderness. No deformity Lymph: No cervical adenopathy. Neurological: Alert and oriented to person, place, and time. Normal strength. CN II-VII intact. No sensory deficit. GCS eye subscore is 4. GCS verbal subscore is 5. GCS motor subscore is 6. Normal coordination Skin: Cheeks are pink and flushed. Skin is warm and dry. She does have an erythematous , blanchable, macular rash on the left posterior arm (possibly from pressure and laying on the floor). No pallor. Normal capillary refill. Psychiatric: Limited by confusion. Normal mood. Normal affect. Very polite.. Not able to provide history. Const: Vital Signs, click to edit/add: Vital Signs - 24 hr 01/29/25 09:48 01/29/25 11:47 01/29/25 12:00 Temperature 98.2 F Pulse Rate [Pulse Oximeter] 76 Respiratory Rate 16 14 18 Blood Pressure Blood Pressure [Ri ght Upper Arm] 156/69 H Pulse Oximetry 96 Oxygen Delivery Me thod Room Air 01/29/25 12:02 01/29/25 12:15 01/29/25 12:22 Temperature Pulse Rate [Pulse Oximeter] Respiratory Rate 23 14 16 Blood Pressure 121/59 L 128/57 L Blood Pressure [Ri ght Upper Arm] Pulse Oximetry Oxygen Delivery Me thod 01/29/25 12:30 01/29/25 12:42 01/29/25 12:45 Temperature Pulse Rate [Pulse Oximeter] Respiratory Rate 20 13 22 Blood Pressure 126/59 L Blood Pressure [Ri ght Upper Arm] Pulse Oximetry Oxygen Delivery Me thod 01/29/25 13:44 Temperature 97.6 F Pulse Rate [Pulse Oximeter] 63 Respiratory Rate 18 Blood Pressure Blood Pressure [Ri ght Upper Arm] 134/63 Pulse Oximetry 93 Oxygen Delivery Me thod Room Air Course Course ED Course: Recheck-patient is sleeping but arouses gently to my voice. He reviewed findings with the patient's caregiver. So far workup looks reassuring. Will try p.o. challenge and road test. Vital Signs Vital signs: Initial Vital Signs Temperature 98.2 F 01/29/25 09:48 Temperature Source Temporal Artery Scan 01/29/25 09:48 Pulse Rate 76 01/29/25 09:48 Respiratory Rate 16 01/29/25 09:48 Blood Pressure 156/69 H 01/29/25 09:48 Blood Pressure Mean 98 01/29/25 09:48 Blood Pressure Position Supine 01/29/25 09:48 Pulse Oximetry 96 01/29/25 09:48 Oxygen Delivery Method Room Air 01/29/25 09:48 Vital Signs Temperature 98.2 F 01/29/25 09:48 Pulse Rate 76 01/29/25 09:48 Respiratory Rate 16 01/29/25 09:48 Blood Pressure 156/69 H 01/29/25 09:48 Pulse Oximetry 96 01/29/25 09:48 Oxygen Delivery Method Room Air 01/29/25 09:48 Temperature 97.6 F 01/29/25 13:44 Pulse Rate 63 01/29/25 13:44 Respiratory Rate 18 01/29/25 13:44 Blood Pressure 134/63 01/29/25 13:44 Pulse Oximetry 93 01/29/25 13:44 Oxygen Delivery Method Room Air 01/29/25 13:44 Medical Decision Making MDM Narrative Medical decision making narrative: 84-year-old female with history of dementia brought to the ER today by EMS after an unwitnessed fall in her apartment at [facility]. With her unwitnessed fall and poor memory consider possible intracranial injury. Head CT is obtained and fortunately is negative for any sign of intracranial bleeding. She denies any headache or any other clear symptoms of concussion. Because of confusion, patient is not a reliable patient for neck examination and therefore C-spine could not be cleared by clinical criteria. C-spine CT is obtained and is fortunately negative for any acute traumatic injury. Her primary chief complaint EMS was that she was having severe low back pain (and received a couple of doses of fentanyl from EMS). CT scan of her chest/abdomen/pelvis, which would include her lumbar spine and bony pelvis, shows no acute traumatic injury. She does not have any evidence of injury to her long bones of her upper lower extremities or any other evidence for hip fracture or shoulder fracture. Given unknown down time on the floor we did consider possible rhabdomyolysis. CK is mildly elevated at 450. Fortunately kidney function is normal. Electrolytes are normal. The CT scan of her abdomen does show pneumobilia. She did have an ERCP done after some abnormal LFTs and biliary duct dilatation, in late November. Previously abnormal LFTs have all non lower lysed. Bilirubin down to 1.1. ALT down from 632 down to 37. ALT is decreased from 664 down to 21. Alk-phos is down from 733- decreased to 109. She is not having any right upper quadrant or any anterior abdominal tenderness. Incidentally there was a 3 mm calcification in the area of the left distal ureter without any associated hydronephrosis. There is no associated abdominal pain or left flank pain. Urinalysis shows no hematuria or pyuria or other signs of UTI. I do not think this calcification represents a true kidney stone. Despite unknown time on the floor last night, CK is relatively new close to normal. No evidence for acute kidney injury rhabdomyolysis. Electrolytes well balanced. CBC reassuring. Here in the ER, she received L of IV fluids, Tylenol for back pain. Despite that she remains more confused than her baseline also has ongoing nonfocal generalized weakness. She is not able to get herself out of bed and is barely able to stand up without the assistance of 2 nurses. It is clear that something has changed in her underlying medical condition and she is not safe to discharge home to [facility] stream comments today. Discussed this with the patient who is agreeable but confused and with her caregiver who is also agreeable. Caregiver strongly feels that it would be unsafe for the patient to discharge home at this time. Discussed with our hospitalist, Di Saucedo, who will accept to the hospitalist service for observation status admission. Lab Data Labs: Lab Results 01/29/25 01/29/25 Range/Units 10:04 10:24 WBC 5.64 (4.50-11.00) K/uL RBC 4.48 (4.00-5.20) m/uL Hgb 14.2 (12.0-16.0) gm/dL Hct 43.6 (33.0-51.0) % MCV 97 (80-100) fL MCH 32 (26-34) pg MCHC 33 (32-36) gm/dL RDW Coeff of Nicholas 13.0 (11.5-15.5) % Plt Count 209 (140-440) K/uL Neut % (Auto) 78.3 H (42.0-72.0) % Lymph % (Auto) 12.4 L (20-44) % [place] % (Auto) 8.7 (0.0-11.0) % Eos % (Auto) 0.0 (0.0-7.0) % Baso % (Auto) 0.2 (0.0-3.0) % Neut # (Auto) 4.40 (1.7-7.0) K/uL Lymph # (Auto) 0.70 L (0.90-2.90) K/uL [place] # (Auto) 0.50 (0.00-0.90) K/UL Eos # (Auto) 0.00 (0.00-0.50) K/uL Baso # (Auto) 0.01 (0.00-0.30) K/uL Abs Immat Gran (auto) 0.02 (0.00-0.30) K/uL Imm/Tot Granulo (auto) 0.4 % Sodium 136 (135-149) mmol/L Potassium 3.8 (3.6-5.1) mmol/L Chloride 100 (96-114) mmol/L Carbon Dioxide 27 (20-32) mmol/L Anion Gap 9 (7-15) mEq/L BUN 14 (7-30) mg/dL Creatinine 0.5 (0.5-1.5) mg/dL Estimated Creat Clear 35.26 Estimated GFR 93 ml/min Glucose 116 H (60-115) mg/dL Lactate 1.3 (0.5-1.9) mmol/L Calcium 10.2 (8.4-10.6) mg/dL Total Bilirubin 1.1 (0.1-1.5) mg/dL AST 37 H (12-35) U/L ALT 21 (4-35) U/L Alkaline Phosphatase 109 (40-150) U/L Total Creatine Kinase 450 H (41-117) U/L Troponin I < 0.01 (0.01-0.04) ng/mL Total Protein 7.0 (6.0-8.3) g/dL Albumin 4.0 (3.3-5.0) g/dL Urine Color Dark yellow (Yellow) Urine Appearance Clear (Clear) Urine pH 6.5 (5.0-8.5) Ur Specific [place] 1.025 (1.000-1.030) Urine Protein Negative (Negative) Urine Glucose (UA) Negative (Negative) Urine Ketones Negative (Negative) Urine Blood Negative (Negative) Urine Nitrite Negative (Negative) Urine Bilirubin Negative (Negative) Urine Urobilinogen 0.2 (0.2-1.0) Ur Leukocyte Esterase Negative (Negative) Urine RBC 0-2 (0-2) Urine WBC 0-2 (0-5) Ur Squamous Epith Cells Few (None-Few) Urine Bacteria Many A (None) Imaging Data CT scan - head: Attestation: I have reviewed the pertinent imaging results. Radiologist's impression: IMPRESSION: : 1. No acute intracranial abnormalities. 2. Chronic findings as above. CT C spine: Attestation: I have reviewed the pertinent imaging results. Radiologist's impression: Impression: 1. No acute cervical abnormalities. 2. Mild multilevel cervical spondylosis. CT Chest/Ab/Pelvis: Attestation: I have reviewed the pertinent imaging results. Radiologist's impression: IMPRESSION: No acute intrathoracic or intra-abdominal/pelvic traumatic injury. New pneumobilia, likely related to recent biliary procedure. Recommend correlation with procedural history. Incidental 3 millimeter calcification adjacent to the distal left ureter, possibly partially obstructing stone in the setting of absent hydronephrosis. Recommend correlation for intermittent left flank pain and urinalysis. Colonic diverticulosis without diverticulosis. ECG Data Interpretation: NSR Rate 74 OH 194 Normal QRS axis No ST elevation or depression. Nonspecific T flattening QT 378 QTC 419 Discharge Plan Discharge Clinical Impression: Weakness, Fall, Acute confusion Low back pain Qualifiers: Chronicity: chronic Back pain laterality: unspecified Sciatica presence: without sciatica Qualified Code(s): M54.50 - Low back pain, unspecified Patient Disposition: Admitted As Observation
--- NOTE | 2025-01-29 10:02 | CRLHL7_ITS ---
For Patients: As a result of the Century Cures Act, medical imaging exams and procedure reports are released immediately into your electronic medical record. You may view this report before your referring provider. If you have questions, please contact your health care provider. INDICATION: Trauma. TECHNIQUE: CT chest, abdomen and pelvis acquired with 100 cc Isovue 370 IV contrast. COMPARISON: December 10, 2024. FINDINGS: CHEST: Cardiovascular structures: Heart size is normal. Thoracic aorta and main pulmonary artery are normal in caliber. Mediastinum and eriberto: No mass or adenopathy. Lungs and pleura: Scattered atelectasis. No focal consolidations, pleural effusions, or pneumothoraces. Chest wall and axilla: No mass or adenopathy. Bones: No acute fracture or dislocation. ABDOMEN AND PELVIS: Liver: Unremarkable. No sign of acute injury. Gallbladder and bile ducts: Prior cholecystectomy. Mild prominence of the common bile duct. Pneumobilia. Pancreas: Unremarkable. Spleen: Unremarkable. No sign of acute injury. Adrenal glands: Unremarkable. Kidneys: Tiny cortical hypodensities, too small to characterize. 3 millimeter calcification adjacent to the distal left ureter, possibly partially obstructing stone in the setting of absent hydronephrosis. No hydronephrosis. Few tiny bilateral nonobstructing stones. GI tract: Colonic diverticulosis without diverticulitis. No bowel obstruction.. Vascular structures: Unremarkable. Mesenteric arteries are patent. Lymph nodes: Unremarkable. Miscellaneous: Small fat containing right ventral hernia. No free air or significant free fluid. Pelvic Organs: Hysterectomy. Bones: Mild anterolisthesis of L4 on L5. IMPRESSION: No acute intrathoracic or intra-abdominal/pelvic traumatic injury. New pneumobilia, likely related to recent biliary procedure. Recommend correlation with procedural history. Incidental 3 millimeter calcification adjacent to the distal left ureter, possibly partially obstructing stone in the setting of absent hydronephrosis. Recommend correlation for intermittent left flank pain and urinalysis. Colonic diverticulosis without diverticulosis. Please note that all CT scans at this facility use dose modulation, iterative reconstruction, and/or weight-based dosing when appropriate to reduce radiation dose to as low as reasonably achievable. Dictated by Khanh Hill MD @ 01/29/2025 2:02:27 PM (Electronically Signed)
--- NOTE | 2025-01-29 10:02 | CRLHL7_ITS ---
For Patients: As a result of the Century Cures Act, medical imaging exams and procedure reports are released immediately into your electronic medical record. You may view this report before your referring provider. If you have questions, please contact your health care provider. INDICATION: Fall with confusion TECHNIQUE: CT head without contrast. COMPARISON: None FINDINGS: CSF spaces: Within normal limits for age with [id number] diffuse cerebral volume loss. No fluid collections. Ventricles: Commensurate with sulci. No Hydrocephalus. Brain parenchyma: No mass lesion, hemorrhage, or acute infarction. The bennett-white differentiation is normal. Moderate multifocal areas of decreased attenuation in the white matter are non-specific but consistent with small vessel/ischemic changes. Midline Structures: Normal. No shift. Orbits: Bilateral pseudophakia Vessels: Moderate atherosclerotic calcifications. Paranasal sinuses: Normal. Mastoid sinuses: Normal. Skull base and calvarium: No fractures or significant abnormalities. IMPRESSION: : 1. No acute intracranial abnormalities. 2. Chronic findings as above. Please note that all CT scans at this facility use dose modulation, iterative reconstruction, and/or weight-based dosing when appropriate to reduce radiation dose to as low as reasonably achievable. Dictated by Pierre Barber MD @ 01/29/2025 1:50:13 PM (Electronically Signed)
--- NOTE | 2025-01-29 10:02 | CRLHL7_ITS ---
For Patients: As a result of the Cures Act, medical imaging exams and procedure reports are released immediately into your electronic medical record. You may view this report before your referring provider. If you have questions, please contact your health care provider. Indication: Fall with confusion. Technique: Routine cervical protocol with sagittal coronal reformatted images Comparison: None. Findings: Bones: No fractures, deformities or lesions. Disc spaces: Mild multilevel cervical spondylosis. No severe stenosis. Soft tissues: No significant paravertebral soft tissue swelling. Lung apices: No acute abnormalities. Visualized skull base: No acute abnormalities. Impression: 1. No acute cervical abnormalities. 2. Mild multilevel cervical spondylosis. Please note that all CT scans at this facility use dose modulation, iterative reconstruction, and/or weight-based dosing when appropriate to reduce radiation dose to as low as reasonably achievable. Dictated by Pierre Barber MD @ 01/29/2025 1:52:23 PM (Electronically Signed)
[2025-01-29 10:20] LABS: Appearance Urine Clear (Clear)
[2025-01-29 10:46] LABS: Lactate* 1.3 mmol/L (0.5-1.9)
[2025-01-29 10:49] LABS: Hematocrit* 43.6 % (33.0-51.0); Hemoglobin* 14.2 gm/dL (12.0-16.0); Immature Granulocytes Abs Auto 0.02 K/uL (0.00-0.30); Immature Granulocytes Pct Auto 0.4 %; Lymphocytes Absolute Auto 0.70 K/uL (0.90-2.90); Mean Corpuscular HGB Conc 33 gm/dL (32-36); Mean Corpuscular Hemoglobin 32 pg (26-34); Mean Corpuscular Volume 97 fL (80-100); RDW Coefficient of Variation % 13.0 % (11.5-15.5); Red Blood Count* 4.48 m/uL (4.00-5.20); White Blood Count* 5.64 K/uL (4.50-11.00)
[2025-01-29 11:06] LABS: Slide Review Reflex No
[2025-01-29 11:15] LABS: Albumin* 4.0 g/dL (3.3-5.0); Chloride* 100 mmol/L (96-114); Potassium* 3.8 mmol/L (3.6-5.1); Sodium* 136 mmol/L (135-149)
[2025-01-29 11:18] LABS: Alanine Aminotransferase* 21 U/L (4-35); Alkaline Phosphatase* 109 U/L (40-150); Anion Gap 9 mEq/L (7-15); Aspartate Amino Transferase* 37 U/L (12-35); Bilirubin Total* 1.1 mg/dL (0.1-1.5); Blood Urea Nitrogen* 14 mg/dL (7-30); Calcium* 10.2 mg/dL (8.4-10.6); Carbon Dioxide* 27 mmol/L (20-32); Creatine Kinase* 450 U/L (41-117); Creatinine* 0.5 mg/dL (0.5-1.5); Est. Creatinine Clearance* 35.26; Estimated Glomerular Filt Rate 93 ml/min; Glucose* 116 mg/dL (60-115); Total Protein* 7.0 g/dL (6.0-8.3)
[2025-01-29] MEDS: ACETAMINOPHEN 500 MG TABLET 1000 MG PO ×2 (16:07→22:11)
--- NOTE | 2025-01-29 16:10 | PM.IMHP1 ---
Assessment and Plan Assessment and plan (1) Fall: Problem comment: -acute on chronic recurrent, EMR shows visits for falls over the last 6 months with resulting hip and back pain -PT/OT consults Status: Acute (2) Low back pain: Problem comment: -acute on chronic, worsened following fall -pain management to include scheduled Tylenol, lidocaine patch, cold compress, oxycodone and morphine p.r.n. (monitoring for sedation and increase confusion) -PT/OT consults Status: Acute (3) Hip pain, left: Problem comment: -s/p fall. Had a fall with left hip pain 12/12 as well (xray without acute findings at that time) -hip xray ordered. No acute osseous injuries are noted -PT/OT consults Status: Acute (4) Physical deconditioning: Problem comment: -as above -social contact worker for discharge planning/placement needs Status: Acute (5) Late onset Alzheimer dementia: Problem comment: -continue home meds -monitor for delirium Status: Acute (6) Depression: Problem comment: -continue home meds Status: Acute (7) Pneumobilia: Problem comment: -CT shows new pneumobilia, likely related to recent biliary procedure. ERCP at [facility] 11/2024 Status: Acute (8) Ureteral calculus: Problem comment: -CT shows Incidental 3 millimeter calcification adjacent to the distal left ureter, possibly partially obstructing stone in the setting of absent hydronephrosis. UA rather unremarkable. Not currently symptomatic Status: Acute Plan Therapies to assess. director human services to assist with discharge planning/placement needs Total Time Spent Total Time Spent: Today I spent 75 minutes seeing the patient, reviewing Expanse and EPIC notes/diagnostics, discussing the care plan with our care time that includes social work, PT/OT, pharmacy, RT, alf and documenting my impressions and plan in the medical record. Hospitalist- H&P: HPI History of Present Illness Date Seen: 01/29/25 Chief complaint: Fall Narrative: Danita Wallace is a 84 year old female past medical history significant for hypertension, late onset Alzheimer's dementia, depression, elevated parathyroid hormone is admitted to the medical floor from the ED following a fall at home. Patient is seen lying in bed. Her caregiver is not with her. She is a poor historian. Does not recall falling. Majority of history is obtained from ED provider and documents. Was found on the floor of her apartment earlier this morning, unknown when she fell. CK is 450. Patient was complaining of low back pain to EMS. Currently, she denies headache or neck pain. She denies dizziness. Denies chest pain or shortness of breath. Denies nausea or vomiting. When asked if she has pain elsewhere, she shows me her left hip into groin. Her leg is not shortened or externally rotated. She tells me she is ?pretty healthy. She knows she is in the [facility]. When asked what month it is she tells me fall. She believes the year is 1940. Resident at [facility]. I am told she may be in independent living. She has a caregiver but no one that stays overnight with her. Patient tells us her daughter lives out of town. PCP is Dr. Ching. POLST - DNR/DNI. Review of Systems Narrative: REVIEW OF SYSTEMS: Complete review of systems performed and negative unless otherwise stated in HPI or below. Medical Decision Making Medical Decision Making Code Status: DNR/DNI Has patient completed a Health Care Directive: No During This Stay, Who Would You Like To Make Decisions For You In The Event You Are Unable To Make Them For Yourself?: Daughter, KENIA Montalvo [facility] Medical History (Updated 01/29/25 @ 18:02 by Di Elliott PA-C) Late onset Alzheimer dementia ?G30.1 - Alzheimer's disease with late onset (ICD-10) ?F02.80 - Dementia in other diseases classified elsewhere, unspecified severity, without behavioral disturbance, psychotic disturbance, mood disturbance, and anxiety (ICD-10) Depression ?F32.A - Depression, unspecified (ICD-10) Low back pain ?M54.50 - Low back pain, unspecified (ICD-10) History of pancreatitis ?Z87.19 - Personal history of other diseases of the digestive system (ICD-10) Osteopenia ?M85.80 - Other specified disorders of bone density and structure, unspecified site (ICD-10) Elevated parathyroid hormone ?R79.89 - Other specified abnormal findings of blood chemistry (ICD-10) Hypercalcemia ?E83.52 - Hypercalcemia (ICD-10) Vitamin D deficiency ?E55.9 - Vitamin D deficiency, unspecified (ICD-10) Impaired fasting glucose ?R73.01 - Impaired fasting glucose (ICD-10) Hypertension ?I10 - Essential (primary) hypertension (ICD-10) Social History What is your current living situation?: I presently have a place to live Problems where you live: no known problems Problems where you live details: home alone with [employer] 4 hours/day In the past 12 months, utilities in danger of being shut off: no In past 12 months, lack of transportation kept you from medical appts, meetings, work, or getting things needed for daily living: no In the past 12 mos, have been you worried that your food would run out before you had money to buy more?: never true In the past 12 mos, the food you bought just didn't last and you didn't have money to buy more?: never true Smoking Status: Never smoker Do you use any of these nicotine containing products: None How often do you have a drink containing alcohol: never AUDIT-C Alcohol total score: 0 Non-prescribed substance use: denies use How often does anyone, including family, friends and others, physically hurt you: never How often does anyone, including family, friends and others, insult or talk down to you: never How often does anyone, including family, friends and others, threaten you with harm: never How often does anyone, including family, friends and others, scream or curse at you: never service: No Meds Home Medications and Allergies Home Medications ?Medication ?Instructions ?Recorded ?Confirmed ?Type acetaminophen 325 mg tablet 650 mg PO Q4H PRN 05/31/23 01/29/25 History cholecalciferol (vitamin D3) 125 125 mcg PO DAILY 05/31/23 01/29/25 History mcg (5,000 unit) tablet (Vitamin D3) citalopram 10 mg tablet 10 mg PO DAILY 05/31/23 01/29/25 History cyanocobalamin (vitamin B-12) 1,000 mcg PO DAILY 05/31/23 01/29/25 History 1,000 mcg tablet donepezil 10 mg tablet 10 mg PO HS 05/31/23 01/29/25 History guar gum 3 tbsp PO DAILY 01/29/25 01/29/25 History ibuprofen 200 mg tablet (Advil) 400 mg PO Q6H PRN 01/29/25 01/29/25 History latanoprost 0.005 % eye drops 1 drp ophthalmic (eye) DAILY 01/29/25 01/29/25 History loperamide 2 mg capsule 2 mg PO DAILY PRN 01/29/25 01/29/25 History polyethylene glycol 3350 17 17 g PO DAILY PRN 01/29/25 01/29/25 History gram/dose oral powder (ClearLax) sennosides 8.6 mg tablet (Laxative 8.6 mg PO BID PRN 01/29/25 01/29/25 History (sennosides)) Allergies Allergy/AdvReac Type Severity Reaction Status Date / Time No Known Drug Allergies Allergy Verified 01/29/25 13:36 Exam Narrative: Exam Narrative: PHYSICAL EXAM General: Pleasant, confused, otherwise NAD HEENT: Normocephalic, atraumatic, sclera white, EOMI, oral mucosa moist Cardiovascular: RRR, S1S2. 1+ pitting edema Pulmonary: CTA bilaterally without rhonchi, rales, expiratory wheezes. No dyspnea on room air Abdominal: Soft, nondistended, NTTP Neurological: Alert, confused, oriented to self, no focal findings Extremities: No gross joint deformity or swelling. LLE is not shortened or externally rotated. Remainder of extremities without pain on palpation. Neurovascularly intact Skin: Warm, dry. Const: Vital Signs, click to edit/add: Vital Signs - 24 hr 01/29/25 09:48 01/29/25 11:47 01/29/25 12:00 Temperature 98.2 F Pulse Rate [Pulse Oximeter] 76 Respiratory Rate 16 14 18 Blood Pressure Blood Pressure [Ri ght Upper Arm] 156/69 H Pulse Oximetry 96 Oxygen Delivery Me thod Room Air 01/29/25 12:02 01/29/25 12:15 01/29/25 12:22 Temperature Pulse Rate [Pulse Oximeter] Respiratory Rate 23 14 16 Blood Pressure 121/59 L 128/57 L Blood Pressure [Ri ght Upper Arm] Pulse Oximetry Oxygen Delivery Me thod 01/29/25 12:30 01/29/25 12:42 01/29/25 12:45 Temperature Pulse Rate [Pulse Oximeter] Respiratory Rate 20 13 22 Blood Pressure 126/59 L Blood Pressure [Ri ght Upper Arm] Pulse Oximetry [facility] 01/29/25 13:44 Temperature 97.6 F Pulse Rate [Pulse Oximeter] 63 Respiratory Rate 18 Blood Pressure [facility] 134/63 Pulse Oximetry 93 Oxygen Delivery Id thod Room Air Hospitalist - H&P: Result Labs Labs: Short CBC 01/29/25 Range/Units 10:24 WBC 5.64 (4.50-11.00) K/uL Hgb 14.2 (12.0-16.0) gm/dL Hct 43.6 (33.0-51.0) % Plt Count 209 (140-440) K/uL BMP 01/29/25 10:24 Sodium 136 Potassium 3.8 Chloride 100 Carbon Dioxide 27 BUN 14 Creatinine 0.5 Glucose 116 H Calcium 10.2 Cardiac Enzymes 01/29/25 Range/Units 10:24 Total Creatine Kinase 450 H (41-117) U/L Troponin I < 0.01 (0.01-0.04) ng/mL Liver Function 01/29/25 Range/Units 10:24 Total Bilirubin 1.1 (0.1-1.5) mg/dL AST 37 H (12-35) U/L ALT 21 (4-35) U/L Alkaline Phosphatase 109 (40-150) U/L Albumin 4.0 (3.3-5.0) g/dL Urine 01/29/25 Range/Units 10:04 Urine Color Dark yellow (Yellow) Urine Appearance Clear (Clear) Urine pH 6.5 (5.0-8.5) Ur Specific [place] 1.025 (1.000-1.030) Urine Protein Negative (Negative) Urine Glucose (UA) Negative (Negative) Imaging CT scan - head: Attestation: I have reviewed the pertinent imaging results. Radiologist's impression: CSF spaces: Within normal limits for age with [id number] diffuse cerebral volume loss. No fluid collections. Ventricles: Commensurate with sulci. No Hydrocephalus. Brain parenchyma: No mass lesion, hemorrhage, or acute infarction. The bennett-white differentiation is normal. Moderate multifocal areas of decreased attenuation in the white matter are non-specific but consistent with small vessel/ischemic changes. Midline Structures: Normal. No shift. Orbits: Bilateral pseudophakia Vessels: Moderate atherosclerotic calcifications. Paranasal sinuses: Normal. Mastoid sinuses: Normal. Skull base and calvarium: No fractures or significant abnormalities. IMPRESSION: : 1. No acute intracranial abnormalities. 2. Chronic findings as above. CT Chest/Ab/Pelvis: Attestation: I have reviewed the pertinent imaging results. Radiologist's impression: CHEST: Cardiovascular structures: Heart size is normal. Thoracic aorta and main pulmonary artery are normal in caliber. Mediastinum and eriberto: No mass or adenopathy. Lungs and pleura: Scattered atelectasis. No focal consolidations, pleural effusions, or pneumothoraces. Chest wall and axilla: No mass or adenopathy. Bones: No acute fracture or dislocation. ABDOMEN AND PELVIS: Liver: Unremarkable. No sign of acute injury. Gallbladder and bile ducts: Prior cholecystectomy. Mild prominence of the common bile duct. Pneumobilia. Pancreas: Unremarkable. Spleen: Unremarkable. No sign of acute injury. Adrenal glands: Unremarkable. Kidneys: Tiny cortical hypodensities, too small to characterize. 3 millimeter calcification adjacent to the distal left ureter, possibly partially obstructing stone in the setting of absent hydronephrosis. No hydronephrosis. Few tiny bilateral nonobstructing stones. GI tract: Colonic diverticulosis without diverticulitis. No bowel obstruction.. Vascular structures: Unremarkable. Mesenteric arteries are patent. Lymph nodes: Unremarkable. Miscellaneous: Small fat containing right ventral hernia. No free air or significant free fluid. Pelvic Organs: Hysterectomy. Bones: Mild anterolisthesis of L4 on L5. IMPRESSION: No acute intrathoracic or intra-abdominal/pelvic traumatic injury. New pneumobilia, likely related to recent biliary procedure. Recommend correlation with procedural history. Incidental 3 millimeter calcification adjacent to the distal left ureter, possibly partially obstructing stone in the setting of absent hydronephrosis. Recommend correlation for intermittent left flank pain and urinalysis. Colonic diverticulosis without diverticulosis. CT C-spine: Attestation: I have reviewed the pertinent imaging results. Radiologist's impression: Bones: No fractures, deformities or lesions. Disc spaces: Mild multilevel cervical spondylosis. No severe stenosis. Soft tissues: No significant paravertebral soft tissue swelling. Lung apices: No acute abnormalities. Visualized skull base: No acute abnormalities. Impression: 1. No acute cervical abnormalities. 2. Mild multilevel cervical spondylosis.
--- NOTE | 2025-01-29 17:15 | CRLHL7_ITS ---
For Patients: As a result of the Cures Act, medical imaging exams and procedure reports are released immediately into your electronic medical record. You may view this report before your referring provider. If you have questions, please contact your health care provider. INDICATION: Fall, left hip pain TECHNIQUE: Pelvis radiograph, Hip radiograph 3 views left COMPARISON: None FINDINGS: Bone: No acute fractures or aggressive bone lesions are identified. 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 The visualized sacroiliac joints are unremarkable in appearance. Moderate diffuse osteopenia is present. The sacrum and portions of the pubic symphysis or obscured by excreted contrast within the bladder and can not be evaluated. Soft tissue: Unremarkable. No radiopaque foreign bodies are seen. IMPRESSION: 1. No acute osseous injuries are noted. Dictated by Navarro Gomez MD @ 01/29/2025 5:45:18 PM Dictated by: Navarro Gomez MD @ 01/29/2025 17:45:26 (Electronically Signed)
[2025-01-29] MEDS: LIDOCAINE 5% PATCH 1 PATCH TRANSDERMA (18:17)
--- NOTE | 2025-01-29 20:09 | PC.NURSE ---
Pt a/o x1, pt has been in bed for the shift. Purewick in place, pt on reg diet, meal tolerated. Pain reported 3/10 throughout shift, lidocaine patch in place, no reports of pain at this time. pt is sleeping comfortably
[2025-01-29] MEDS: DONEPEZIL 10 MG TABLET PO (20:31)
[2025-01-29] MEDS: ENOXAPARIN 30 MG/0.3ML INJ SUBCUT (20:31)
[2025-01-29] MEDS: SODIUM CHLORIDE 0.9 % (FLUSH) 10 ML SYRINGE 5 ML IVF (20:36)
[2025-01-30 03:36] VITALS: RESP 16
[2025-01-30 03:38] VITALS: RESP 16
[2025-01-30] MEDS: ACETAMINOPHEN 500 MG TABLET 1000 MG PO ×2 (04:22→09:38)
--- NOTE | 2025-01-30 04:35 | PC.NURSE ---
shift note: Pt alert and oriented to self. Restful VS ordered, pt respirations recorded. Pt denies pain, N/V. Purewick in place. Pt sleeping and able to be aroused by name and gentle touch for scheduled medication.
[2025-01-30 05:38] VITALS: BMI 35.1
[2025-01-30 06:14] VITALS: BP 156/67; PULSE 60; RESP 16; TEMP 36.5; O2SAT 94
[2025-01-30 06:16] LABS: Hematocrit* 41.0 % (33.0-51.0); Hemoglobin* 13.3 gm/dL (12.0-16.0); Mean Corpuscular HGB Conc 32 gm/dL (32-36); Mean Corpuscular Hemoglobin 32 pg (26-34); Mean Corpuscular Volume 97 fL (80-100); Red Blood Count* 4.21 m/uL (4.00-5.20); White Blood Count* 4.51 K/uL (4.50-11.00)
[2025-01-30 06:19] LABS: Slide Review Reflex No
[2025-01-30 06:29] LABS: Chloride* 107 mmol/L (96-114); Sodium* 136 mmol/L (135-149)
[2025-01-30 06:30] LABS: Potassium* 3.6 mmol/L (3.6-5.1)
[2025-01-30 06:33] LABS: Anion Gap 5 mEq/L (7-15); Blood Urea Nitrogen* 16 mg/dL (7-30); Calcium* 10.0 mg/dL (8.4-10.6); Carbon Dioxide* 24 mmol/L (20-32); Creatinine* 0.6 mg/dL (0.5-1.5); Est. Creatinine Clearance* 35.26; Estimated Glomerular Filt Rate 89 ml/min; Glucose* 101 mg/dL (60-115)
[2025-01-30 07:00] VITALS: BP 147/86; PULSE 60; RESP 18; TEMP 36.5; O2SAT 95
[2025-01-30] MEDS: SODIUM CHLORIDE 0.9 % (FLUSH) 10 ML SYRINGE 5 ML IVF (08:50)
[2025-01-30] MEDS: LATANOPROST 0.005% OPHTH 1 DROP EYE-RIGHT (08:50)
[2025-01-30] MEDS: CITALOPRAM HYDROBROMIDE 20 MG TABLET 10 MG PO (08:50)
--- NOTE | 2025-01-30 09:10 | PC.SOCIAL ---
Addendum entered by Kat Mckinney [facility] 01/30/25 10:19: Discharge plans: Called local contact, Radha, at dtrs request for transportation back to [facility]. Radha states she will pick pt up shortly. Called dtr and left message stating pt was returning to her facility this morning and leaving contact numbers if dtr has any questions or concerns. Addendum entered by Kat Mckinney [facility] 01/30/25 09:18: Discharge planning: Spoke with dtr Katia by phone. Dtr confirmed plan is for pt to return to [facility] at discharge. Dtr states she should be main contact for pt as she is her medical decision maker. Radha, who is listed as another contact, is local and assists pt with appointments and transportation but does not provide any services to pt in her apartment at [facility]. Dtr states Radha can be contacted for transportation at discharge. Dtr would like to be informed of when pt is discharged. circulation worker to follow up as needed. Original Note: Discharge planning: Called [facility] nursing [phone] and spoke with nurseFaith, who confirmed pt can return if one person assist, which she was prior to admission. circulation worker to send documentation from regarding her admission to [facility]. Nurse to complete nurse to nurse prior to discharge.
--- NOTE | 2025-01-30 09:39 | PM.DS1 ---
DS: Providers Provider Date Seen: 01/30/25 Date of admission: 01/29/25 16:30 Primary care physician: Fatmata Ching MD Admitting Clinician: Carola Cia MD Consults: 01/29/25 17:15 Consult to Occupational Therapy [CONS] Routine Comment: Reason(s) for OT Consult:: Evaluate and Treat Any Restrictions?:: No Restrictions Consult to Physical Therapy [CONS] Routine Comment: Reason(s) for PT Consult:: Evaluate and Treat Any Restrictions?:: No Restrictions Consult to [employer] [CONS] Routine Comment: Reason for Consult:: Social Service Consult Attending Physician on discharge: Vivi Gupta MD Date of Discharge: 01/30/25 DS: Diagnosis Discharge Diagnosis (1) Fall: Status: Acute Problem details: -acute on chronic recurrent, EMR shows visits for falls over the last 6 months with resulting hip and back pain -PT/OT saw during stay, no acute needs identified (2) Low back pain: Status: Acute Problem details: -acute on chronic, worsened following fall -pain management to include scheduled Tylenol, lidocaine patch, cold compress, oxycodone prn (monitoring for sedation and increase confusion) -did not require any narcotics during hospital stay, back to baseline 01/30 (3) Hip pain, left: Status: Acute Problem details: -s/p fall. Had a fall with left hip pain 12/12 as well (xray without acute findings at that time) -hip xray ordered. No acute osseous injuries are noted -ambulating normally with walker 01/30 (4) Physical deconditioning: Status: Acute Problem details: -as above -social work specialist for discharge planning/placement needs (5) Late onset Alzheimer dementia: Status: Acute Problem details: -continue home meds -monitor for delirium (6) Depression: Status: Acute Problem details: -continue home meds (7) Pneumobilia: Status: Acute Problem details: -CT shows new pneumobilia, likely related to recent biliary procedure. ERCP at [facility] 11/2024 -no abdominal pain or nausea, tolerating po intake (8) Ureteral calculus: Status: Acute Problem details: -CT shows Incidental 3 millimeter calcification adjacent to the distal left ureter, possibly partially obstructing stone in the setting of absent hydronephrosis -UA unremarkable, asymptomatic DS: Summary Hospital Course Hospital Course: Danita was admitted to the hospital on 01/29 after a fall at her [facility] ([facility]), was found down and likely on the floor for a few hours. Required intranasal and IV Fentanyl by EMS. In the ER: reassuring head and C-spine CTs, reassuring Hip XR, no acute findings on C/A/P CT (see below for incidental, asymptomatic findings). Labs reassuring with the exception of mildly elevated CK (450), EKG normal. She was unable to ambulate in the ER, admitted overnight for therapy evaluations and pain management. Did not require any opiate pain medications during stay. Seen by therapies on 01/30 and no needs identified; able to ambulate down the leo with her walker. Comorbidities noted above, stable. No changes made to home medications. Accepted back to [facility] upon discharge 01/30/25. Status at Discharge Functional status at discharge: uses cane/walker Overall status at discharge: patient is progressing back to baseline Time Spent with Patient Time attestation: Total time spent providing and/or coordinating discharge services: Time spent: Greater than 30 minutes Specific discharge activities: Medication reconciliation, multidisciplinary team discussion, plan of care Exam Narrative: Exam Narrative: GEN: Alert and awake, sitting comfortably in bedside chair. I am also able to see her ambulate down the leo using her walker with PT this morning HEENT: EOMIs bilaterally, no scleral icterus CV: RRR, No concerning murmurs R: LCTA bilaterally Back: Normal contours, no open wounds, no concerning bruising, tolerates palpation over spinous processes Ext: wwp, trace bilateral ankle edema Skin: No concerning skin lesions or rashes on exposed skin Neuro: No focal deficits Psych: Cognitive impairment is evident, no agitation Const: Vital Signs, click to edit/add: Vital Signs - 24 hr 01/29/25 09:48 01/29/25 11:47 01/29/25 12:00 Temperature 98.2 F Pulse Rate [Left P ulse Oximeter] Pulse Rate [Pulse Oximeter] 76 Respiratory Rate 16 14 18 Blood Pressure Blood Pressure [Ri ght Arm] Blood Pressure [Ri ght Upper Arm] 156/69 H Pulse Oximetry 96 Oxygen Delivery Me thod Room Air 01/29/25 12:02 01/29/25 12:15 01/29/25 12:22 Temperature Pulse Rate [Left P ulse Oximeter] Pulse Rate [Pulse Oximeter] Respiratory Rate 23 14 16 Blood Pressure 121/59 L 128/57 L Blood Pressure [Ri ght Arm] Blood Pressure [Ri ght Upper Arm] Pulse Oximetry Oxygen Delivery Me thod 01/29/25 12:30 01/29/25 12:42 01/29/25 12:45 Temperature Pulse Rate [Left P ulse Oximeter] Pulse Rate [Pulse Oximeter] Respiratory Rate 20 13 22 Blood Pressure 126/59 L Blood Pressure [Ri ght Arm] Blood Pressure [Ri ght Upper Arm] Pulse Oximetry Oxygen Delivery Me thod 01/29/25 13:44 01/29/25 16:16 01/29/25 17:15 Temperature 97.6 F 98.6 F 97.9 F Pulse Rate [Left P ulse Oximeter] 69 Pulse Rate [Pulse Oximeter] 63 67 Respiratory Rate 18 18 18 Blood Pressure Blood Pressure [Ri ght Arm] 151/61 H Blood Pressure [Ri ght Upper Arm] 134/63 135/56 L Pulse Oximetry 93 96 97 Oxygen Delivery Me thod Room Air Room Air Room Air 01/29/25 17:30 01/29/25 19:00 01/29/25 23:33 Temperature 97.9 F Pulse Rate [Left P ulse Oximeter] 61 63 Pulse Rate [Pulse Oximeter] Respiratory Rate 20 16 Blood Pressure Blood Pressure [Ri ght Arm] 122/54 L Blood Pressure [Ri ght Upper Arm] Pulse Oximetry 95 Oxygen Delivery Me thod Room Air Room Air 01/29/25 23:33 01/29/25 23:35 01/30/25 03:36 Temperature 98.4 F Pulse Rate [Left P ulse Oximeter] 63 Pulse Rate [Pulse Oximeter] Respiratory Rate 16 16 16 Blood Pressure Blood Pressure [Ri ght Arm] 115/47 L Blood Pressure [Ri ght Upper Arm] Pulse Oximetry 95 Oxygen Delivery Me thod Room Air 01/30/25 03:38 01/30/25 06:14 01/30/25 07:00 Temperature 97.7 F 97.7 F Pulse Rate [Left P ulse Oximeter] 60 60 Pulse Rate [Pulse Oximeter] Respiratory Rate 16 16 18 Blood Pressure Blood Pressure [Ri ght Arm] 156/67 H 147/86 H Blood Pressure [Ri ght Upper Arm] Pulse Oximetry 94 95 Oxygen Delivery Me thod Room Air Room Air DS: Data Data Completed and Pending Labs on day of discharge: Labs from last 24 hours 01/30/25 01/29/25 01/29/25 05:49 10:24 10:04 WBC 4.51 5.64 RBC 4.21 4.48 Hgb 13.3 14.2 Hct 41.0 43.6 MCV 97 97 MCH 32 32 MCHC 32 33 RDW Coeff of [place] 13.0 Plt Count 184 209 Neut % (Auto) 78.3 H Lymph % (Auto) 12.4 L [place] % (Auto) 8.7 Eos % (Auto) 0.0 Baso % (Auto) 0.2 Neut # (Auto) 4.40 Lymph # (Auto) 0.70 L [place] # (Auto) 0.50 Eos # (Auto) 0.00 Baso # (Auto) 0.01 Abs Immat Gran (auto) 0.02 Imm/Tot Granulo (auto) 0.4 Sodium 136 136 Potassium 3.6 3.8 Chloride 107 100 Carbon Dioxide 24 27 Anion Gap 5 L 9 BUN 16 14 Creatinine 0.6 0.5 Estimated Creat Clear 35.26 35.26 Estimated GFR 89 93 Glucose 101 116 H Lactate 1.3 Calcium 10.0 10.2 Total Bilirubin 1.1 AST 37 H ALT 21 Alkaline Phosphatase 109 Total Creatine Kinase 450 H Troponin I < 0.01 Total Protein 7.0 Albumin 4.0 Urine Color Dark yellow Urine Appearance Clear Urine pH 6.5 Ur Specific [place] 1.025 Urine Protein Negative Urine Glucose (UA) Negative Urine Ketones Negative Urine Blood Negative Urine Nitrite Negative Urine Bilirubin Negative Urine Urobilinogen 0.2 Ur Leukocyte Esterase Negative Urine RBC 0-2 Urine WBC 0-2 Ur Squamous Epith Cells Few Urine Bacteria Many A Preliminary micro results at discharge 01/29/25 10:04 Urine Culture - Preliminary Urine Catheterized NO GROWTH AFTER 24 HOURS Discharge Plan Discharge Disposition: Home, Self-Care Date of Admission: 01/29/25 16:30 Attending Provider on Discharge: Vivi Gupta Primary Care Provider: Fatmata Ching Condition: Improved Anticipated Discharge Date/Time: 01/30/25 09:35 Discharge Medications: Continued citalopram 10 mg tablet 10 mg PO DAILY donepezil 10 mg tablet 10 mg PO HS cyanocobalamin (vitamin B-12) 1,000 mcg tablet 1,000 mcg PO DAILY acetaminophen 325 mg tablet 650 mg PO Q4H PRN cholecalciferol (vitamin D3) [Vitamin D3] 125 mcg (5,000 unit) tablet 125 mcg PO DAILY latanoprost 0.005 % drops 1 drp ophthalmic (eye) DAILY Patient Comments: right eye loperamide 2 mg capsule 2 mg PO DAILY PRN guar gum Packet 3 tbsp PO DAILY Rx Instructions: DOSE FROM FACILITY IS 9 GRAMS PO DAILY ibuprofen [Advil] 200 mg tablet 400 mg PO Q6H PRN polyethylene glycol 3350 [ClearLax] 17 gram/dose powder 17 g PO DAILY PRN sennosides [Laxative (sennosides)] 8.6 mg tablet 8.6 mg PO BID PRN Discharge Orders: Discharge Order (Routine); Ordered 01/30/25 Ordered By: Vivi Gupta Patient Education: Fall Prevention (DC) Additional Instructions: No changes to home medications. Keep using your walker, continue fall precautions. Activity Level: Activity as Tolerated Discharge Diet: Regular Follow Up Appointments: Fatmata Ching MD [Primary Care Provider, Family Practice] Referral Note: 1-2 weeks for hospital f/u Forms: [employer] Info Instructions
--- NOTE | 2025-01-30 10:37 | PC.NURSE ---
PAT[facility]. NURSE TO NURSE REPORT [facility] TO [email or web address] ALL QUESTIONS ANSWERED. PATIENT DECLINED PAIN, ALERT AND ORIENTED TO SELF ONLY. NEEDS QUEUING TO EVERYDAY TASKS. INCONTINENT OF BLADDER. UP A1/SBA WITH WALKER AND BELT TOLERATING WELL. EATING AND DRINKING REGULAR DIET WITHOUT ASSISTANCE MINIMAL SET UP ONLY. LEFT VIA WHEELCHAIR WITH JANET FROM [email or web address]. PT CALLED JANET HER PARA. DISCHARGE AT 1030.
== END 2025-01-30 10:30 | disposition home or self-care (01) ==
LOC: ED 15:42 → MEDSURG 16:30
PROVIDERS: Physician Assistant; Admitting Provider Family Medicine; Emergency Provider Emergency Medicine; PCP Family Medicine; Visit Provider Family Medicine
DX: M54.50 Low back pain, unspecified (principal); M25.552 Pain in left hip; R41.0 Disorientation, unspecified; G30.1 Alzheimer's disease with late onset; F32.9 Major depressive disorder, single episode, unspecified; R53.81 Other malaise; N20.1 Calculus of ureter; K83.8 Other specified diseases of biliary tract
CPT/HCPCS: 36415; 70450; 71260; 72125; 73502; 74177; 80048; 80053; 81001; 82550; 83605; 84484; 85025; 85027; 87040; 87086; 93005; 96360; 96361; 97161; 97165; 97535; 99283; 99285; A9270; G0378; J1650; J7030; Q9967